=== PATIENT | female | born 1945 | race Caucasian/White ===

== ENCOUNTER → 2016-06-16 | Outpatient (CLI) | payer MEDICARE ==
[~2016-06-16] MED LIST: ACET325T14 PO; AMPI500C2 PO; ASPI325T4 PO; CEPH-376 PO; CIPR500T87 PO; DEXA4TAB PO; FERR325T20 PO; HERBAL SUPPLEMENTS PEG; HYDR-882 PO; IRON PO; IRON1TAB PO; LACT1CAP24 PO; LACT1CAP35 PO; LANS30CA16 PO; LAXATIVE PO; LEVO750T26 PO; LORA-446 PO; MAGN300C PO; MAGN400T7 PO; METO10TA2 PO; METO10TA82 PO; METO25TA35 PO; METO50TA3 PO; ONDA4TAB10 PO; ONDA4TAB13 SL; ONDA4TAB7 PO; OXYC-223 PO; PANT20TA3 PO; POTASSIUM PO; hair skin nails PO
== END | disposition home or self-care (01) ==
LOC: CFH 09:00
PROVIDERS: ATTEND Specialist
DX: C56.9 Malignant neoplasm of unspecified ovary (principal); Z93.2 Ileostomy status
CPT/HCPCS: 74270

== ENCOUNTER 2016-07-26 08:53 | Inpatient (IN) | payer MEDICARE ==
[~2016-07-26] VITALS: Ht 171.4 cm; Wt 64.0 kg
[~2016-07-26 08:53] MED LIST changes: +BUPIVACAINE/PF-EPI 0.25% 1:200K ONE
[2016-07-26] MEDS ORDERED: FENTANYL PF 250 MCG/5ML ONE (09:17)
[2016-07-26] MEDS ORDERED: MULT-230 PO (09:41)
[2016-07-26] MEDS ORDERED: CHOL2000 PO (09:43)
[2016-07-26] MEDS: LACTATED RINGERS 1,000 ML IV SCH (09:58)
[2016-07-26 10:13] LABS: ASPARTATE AMINO TRANSFERASE 23 U/L (15-37); BLOOD UREA NITROGEN 15 mg/dL (7-18)
[2016-07-26] MEDS ORDERED: PHENYLEPHRINE 10 MG/ML ONE (10:32)
[2016-07-26] MEDS ORDERED: DEXAMETHASONE 4 MG/ML, 1ML ONE (10:32)
[2016-07-26] MEDS ORDERED: CEFOTETAN 2 GM ONE (10:32)
[2016-07-26] MEDS ORDERED: KETOROLAC 30 MG/1 ML ONE (10:32)
[2016-07-26] MEDS ORDERED: GLYCOPYRROLATE 0.2MG/1ML ONE (10:32)
[2016-07-26] MEDS ORDERED: ROCURONIUM 10 MG/ML ONE (10:32)
[2016-07-26] MEDS ORDERED: EPHEDRINE 50 MG/ML, 1ML ONE (10:32)
[2016-07-26] MEDS ORDERED: ONDANSETRON 2MG/ML, 2ML ONE ×2 (10:32→16:07)
[2016-07-26] MEDS ORDERED: PROPOFOL 10 MG/ML, 20ML ONE (10:32)
[2016-07-26] MEDS ORDERED: NEOSTIGMINE 1 MG/ML, 10ML ONE (10:32)
[2016-07-26] MEDS ORDERED: MAGNESIUM SULFATE 1 GM/2 ML ONE (11:06)
[2016-07-26] MEDS ORDERED: HYDROcodone/APAP 7.5-325MG/15ML UDC PO PRN (12:00)
[2016-07-26] MEDS ORDERED: EPHEDRINE 50 MG/ML, 1ML IVPush PRN (12:00)
[2016-07-26] MEDS ORDERED: hydrALAzine 20 MG/ML, 1ML IV PRN (12:00)
[2016-07-26] MEDS ORDERED: ONDANSETRON 2MG/ML, 2ML IVPush PRN (12:00)
[2016-07-26] MEDS ORDERED: ACETAMINOPHEN 325 MG TABLET PO PRN (12:00)
[2016-07-26] MEDS ORDERED: LABETALOL 5MG/ML, 20ML IV PRN (12:00)
[2016-07-26] MEDS ORDERED: PROMETHAZINE 25 MG/ML, 1ML IV PRN (12:00)
[2016-07-26] MEDS ORDERED: OMNIPAQUE 350 MG/ML, 50 ML BOTTLE IV ONE (12:01)
[2016-07-26] MEDS ORDERED: OMNIPAQUE 350 MG/ML, 50 ML BOTTLE ONE (12:16)
[2016-07-26] MEDS ORDERED: HYDROmorphone 1 MG/ML, 1ML ONE (12:19)
[2016-07-26] MEDS ORDERED: INDOCYANINE GREEN 25 MG VIAL ONE (12:38)
[2016-07-26] MEDS ORDERED: HYDROmorphone 2 MG/ML, 1ML ONE (15:23)
[2016-07-26] MEDS ORDERED: FENTANYL PF 100 MCG/2ML ONE (15:23)
[2016-07-26] MEDS ORDERED: HYDROmorphone PCA 30 MG/30 ML ONE (15:24)
[2016-07-26] MEDS: FENTANYL PF 100 MCG/2ML IV PRN ×2 (15:27→15:55)
[2016-07-26] MEDS: HYDROmorphone 1 MG/ML, 1ML IV PRN ×4 (15:45→19:52)
[2016-07-26] MEDS ORDERED: HYDROmorphone PCA 30 MG/30 ML IV PRN (16:00)
[2016-07-26] MEDS ORDERED: LACTATED RINGERS 500 ML IVBOLUS ONE (17:30)
[2016-07-26] MEDS ORDERED: LACTATED RINGERS 1,000 ML IVBOLUS ONE (18:30)
[2016-07-26] MEDS ORDERED: FUROSEMIDE 20 MG/2 ML ONE (21:23)
[2016-07-26] MEDS ORDERED: FUROSEMIDE 20 MG/2 ML IV ONE (21:30)
[2016-07-26 21:31] LABS: BLOOD UREA NITROGEN 20 mg/dL (7-18)
[2016-07-26 22:38] VITALS: BP 125/70
[2016-07-26 22:44] VITALS: BP 125/70
[2016-07-27] MEDS: LACTATED RINGERS 1,000 ML IV SCH ×3 (01:18→19:00)
[2016-07-27] MEDS: LABETALOL 5MG/ML, 20ML IVPush SCH ×2 (03:00→18:10)
[2016-07-27] MEDS ORDERED: HYDROmorphone 2 MG/ML, 1ML IV PRN (03:00)
[2016-07-27] MEDS ORDERED: ACETAMINOPHEN 650 MG SUPP PR PRN (03:00)
[2016-07-27] MEDS ORDERED: ACETAMINOPHEN 325 MG TABLET PO PRN (03:00)
[2016-07-27] MEDS: POTASSIUM CHLORIDE 20 MEQ in D5%-LACTATED RINGERS 1,000 ML IV SCH ×2 (03:02→08:03)
[2016-07-27 04:45] LABS: BLOOD UREA NITROGEN 22 mg/dL (7-18)
[2016-07-27 04:49] LABS: ASPARTATE AMINO TRANSFERASE 22 U/L (15-37)
[2016-07-27 06:19] VITALS: BP 114/58
[2016-07-27] MEDS: ONDANSETRON 2MG/ML, 2ML IV PRN (06:37)
[2016-07-27] MEDS: ASPIRIN 325 MG TABLET PO SCH (08:46)
[2016-07-27] MEDS: METOPROLOL TARTRATE 25 MG TABLET PO SCH (08:46)
[2016-07-27] MEDS ORDERED: PROMETHAZINE 25 MG/ML, 1ML ONE (09:00)
[2016-07-27] MEDS ORDERED: LABETALOL 5MG/ML, 20ML ONE (09:00)
[2016-07-27] MEDS ORDERED: PROMETHAZINE 25 MG/ML, 1ML IM PRN (09:00)
[2016-07-27] MEDS: CHOLECALCIFEROL 1,000 UNIT TABLET PO SCH (09:03)
[2016-07-27] MEDS: FERROUS SULFATE 220 MG/5 ML ORAL SOL PO SCH (09:03)
[2016-07-27] MEDS: MAGNESIUM OXIDE 400 MG TABLET PO SCH (09:03)
[2016-07-27] MEDS: MULTIVITAMIN 1 TABLET PO SCH (09:03)
[2016-07-27] MEDS ORDERED: FENTANYL PF 250 MCG/5ML ONE (10:10)
[2016-07-27] MEDS ORDERED: PROPOFOL 10 MG/ML, 20ML ONE (11:23)
[2016-07-27] MEDS ORDERED: SUCCINYLCHOLINE 20 MG/ML, 10ML ONE (11:23)
[2016-07-27] MEDS ORDERED: PHENYLEPHRINE 10 MG/ML ONE (11:23)
[2016-07-27] MEDS ORDERED: METOCLOPRAMIDE 5 MG/ML, 2ML ONE (11:23)
[2016-07-27] MEDS ORDERED: NEOSTIGMINE 1 MG/ML, 10ML ONE (11:23)
[2016-07-27] MEDS ORDERED: ONDANSETRON 2MG/ML, 2ML ONE (11:23)
[2016-07-27] MEDS ORDERED: GLYCOPYRROLATE 0.2MG/1ML ONE (11:23)
[2016-07-27] MEDS ORDERED: ROCURONIUM 10 MG/ML ONE (11:23)
[2016-07-27] MEDS ORDERED: CEFOTETAN 2 GM ONE (11:23)
[2016-07-27] MEDS ORDERED: FLUORESCEIN SODIUM 500 MG/5 ML ONE (12:10)
[2016-07-27] MEDS ORDERED: OMNIPAQUE 350 MG/ML, 50 ML BOTTLE IV ONE (13:25)
[2016-07-27] MEDS ORDERED: FUROSEMIDE 20 MG/2 ML ONE (13:29)
[2016-07-27] MEDS ORDERED: POTASSIUM CHLORIDE IV SCH (14:17)
[2016-07-27] MEDS ORDERED: MVI ADULT IV SCH (14:17)
[2016-07-27] MEDS ORDERED: D5 IV SCH (14:17)
[2016-07-27] MEDS ORDERED: NACL IV SCH (14:17)
[2016-07-27] MEDS ORDERED: OMNIPAQUE 350 MG/ML, 50 ML BOTTLE ONE (14:44)
[2016-07-27 16:55] VITALS: BP 113/58
[2016-07-27] MEDS ORDERED: CEFOTETAN PMX 2GM/50ML 50 ML IV SCH (18:30)
[2016-07-27 19:53] LABS: BLOOD UREA NITROGEN 20 mg/dL (7-18)
[2016-07-27] MEDS: CEFOTETAN PMX 2GM/50ML 50 ML IV SCH (23:27)
[2016-07-28 02:37] VITALS: BP_SYST 114; BP_SYST 133; BP_DIAS 47; BP_DIAS 87
[2016-07-28] MEDS: LABETALOL 5MG/ML, 20ML IVPush SCH ×4 (02:45→19:00)
[2016-07-28 02:54] VITALS: BP 96/51
[2016-07-28 05:33] LABS: BLOOD UREA NITROGEN 18 mg/dL (7-18)
[2016-07-28] MEDS: LACTATED RINGERS 1,000 ML IV SCH ×5 (06:25→23:38)
[2016-07-28] MEDS: MULTIVITAMIN 1 TABLET PO SCH (09:00)
[2016-07-28] MEDS: FERROUS SULFATE 220 MG/5 ML ORAL SOL PO SCH (09:00)
[2016-07-28] MEDS: ASPIRIN 325 MG TABLET PO SCH (09:00)
[2016-07-28] MEDS: MAGNESIUM OXIDE 400 MG TABLET PO SCH (09:00)
[2016-07-28] MEDS: METOPROLOL TARTRATE 25 MG TABLET PO SCH (09:00)
[2016-07-28] MEDS: CHOLECALCIFEROL 1,000 UNIT TABLET PO SCH (09:00)
[2016-07-28 12:33] VITALS: BP 141/47
[2016-07-28] MEDS: CEFOTETAN PMX 2GM/50ML 50 ML IV SCH ×2 (13:53→23:03)
[2016-07-28] MEDS: ONDANSETRON 2MG/ML, 2ML IV PRN (16:23)
[2016-07-28 19:25] VITALS: BP 125/60
[2016-07-28 23:50] VITALS: BP 124/54
[2016-07-29] MEDS ORDERED: LORazepam 2 MG/ML, 1ML IVPush ONE
[2016-07-29] MEDS: LACTATED RINGERS 1,000 ML IV SCH ×6 (01:00→20:18)
[2016-07-29 02:30] VITALS: BP 122/60
[2016-07-29] MEDS: LABETALOL 5MG/ML, 20ML IVPush SCH ×3 (03:26→18:05)
[2016-07-29 04:30] LABS: IS PT STATUS REG ER OR PRE ER? NO
[2016-07-29 06:52] LABS: IS PT STATUS REG ER OR PRE ER? NO
[2016-07-29] MEDS: ASPIRIN 325 MG TABLET PO SCH (08:45)
[2016-07-29] MEDS: MAGNESIUM OXIDE 400 MG TABLET PO SCH (08:46)
[2016-07-29] MEDS: CHOLECALCIFEROL 1,000 UNIT TABLET PO SCH (08:46)
[2016-07-29] MEDS: FERROUS SULFATE 220 MG/5 ML ORAL SOL PO SCH (08:46)
[2016-07-29] MEDS: METOPROLOL TARTRATE 25 MG TABLET PO SCH (08:46)
[2016-07-29] MEDS: MULTIVITAMIN 1 TABLET PO SCH (08:46)
[2016-07-29 09:13] LABS: BLOOD UREA NITROGEN 15 mg/dL (7-18)
[2016-07-29] MEDS: CEFOTETAN PMX 2GM/50ML 50 ML IV SCH ×2 (10:52→22:50)
[2016-07-29] MEDS: LORazepam 2 MG/ML, 1ML IV PRN (10:59)
[2016-07-29] MEDS ORDERED: LACTATED RINGERS 1,000 ML IV SCH (12:00)
[2016-07-29 13:20] LABS: IS PT STATUS REG ER OR PRE ER? NO
[2016-07-29 18:02] VITALS: BP 124/56
[2016-07-29 20:14] VITALS: BP 124/51
[2016-07-30] MEDS: ONDANSETRON 2MG/ML, 2ML IV PRN ×2 (00:31→15:14)
[2016-07-30 02:04] VITALS: BP 128/66
[2016-07-30] MEDS: LABETALOL 5MG/ML, 20ML IVPush SCH ×3 (03:47→20:11)
[2016-07-30] MEDS: LACTATED RINGERS 1,000 ML IV SCH ×3 (03:48→20:13)
[2016-07-30] MEDS: LORazepam 2 MG/ML, 1ML IV PRN (04:00)
[2016-07-30 05:28] LABS: BLOOD UREA NITROGEN 12 mg/dL (7-18)
[2016-07-30 08:00] VITALS: BP 124/57
[2016-07-30] MEDS: FERROUS SULFATE 220 MG/5 ML ORAL SOL PO SCH (09:00)
[2016-07-30] MEDS: CHOLECALCIFEROL 1,000 UNIT TABLET PO SCH (09:00)
[2016-07-30] MEDS: ASPIRIN 325 MG TABLET PO SCH (09:00)
[2016-07-30] MEDS: MAGNESIUM OXIDE 400 MG TABLET PO SCH (09:00)
[2016-07-30] MEDS ORDERED: LACTATED RINGERS 1,000 ML IV SCH (09:00)
[2016-07-30] MEDS: MULTIVITAMIN 1 TABLET PO SCH (09:00)
[2016-07-30] MEDS: METOPROLOL TARTRATE 25 MG TABLET PO SCH (09:00)
[2016-07-30] MEDS: CEFOTETAN PMX 2GM/50ML 50 ML IV SCH ×2 (12:06→22:48)
[2016-07-30 15:37] VITALS: BP 146/78
[2016-07-30] MEDS: ENOXAPARIN 40 MG/0.4 ML SQ SCH (19:30)
[2016-07-30 20:06] VITALS: BP 133/59
[2016-07-30] MEDS: PROCHLORPERAZINE 5 MG/ML, 2ML IVPush PRN (20:11)
[2016-07-30] MEDS ORDERED: DIPHENHYDRAMINE 25 MG CAPSULE ONE (22:26)
[2016-07-31 01:42] VITALS: BP 126/64
[2016-07-31] MEDS: ONDANSETRON 2MG/ML, 2ML IV PRN (02:34)
[2016-07-31] MEDS: LABETALOL 5MG/ML, 20ML IVPush SCH ×3 (04:22→18:03)
[2016-07-31] MEDS: LACTATED RINGERS 1,000 ML IV SCH ×2 (04:23→11:20)
[2016-07-31 07:48] VITALS: BP 146/76
[2016-07-31] MEDS: ASPIRIN 325 MG TABLET PO SCH (07:56)
[2016-07-31] MEDS: FERROUS SULFATE 220 MG/5 ML ORAL SOL PO SCH (07:56)
[2016-07-31] MEDS: METOPROLOL TARTRATE 25 MG TABLET PO SCH (07:57)
[2016-07-31] MEDS: MAGNESIUM OXIDE 400 MG TABLET PO SCH (07:57)
[2016-07-31] MEDS: MULTIVITAMIN 1 TABLET PO SCH (07:57)
[2016-07-31] MEDS: CHOLECALCIFEROL 1,000 UNIT TABLET PO SCH (07:57)
[2016-07-31] MEDS ORDERED: LABETALOL 5MG/ML, 20ML ONE (09:00)
[2016-07-31] MEDS: CEFOTETAN PMX 2GM/50ML 50 ML IV SCH ×2 (11:19→23:07)
[2016-07-31] MEDS: PROCHLORPERAZINE 5 MG/ML, 2ML IVPush PRN (12:13)
[2016-07-31] MEDS ORDERED: PHENOL THROAT SPRAY BOTTLE MM PRN (12:30)
[2016-07-31] MEDS: D5%-0.9% NACL+KCL 20MEQ 1,000 ML IV SCH ×2 (13:37→23:07)
[2016-07-31] MEDS ORDERED: POTASSIUM CHLORIDE 20 MEQ in SODIUM CHLORIDE 0.9% 250 ML IV ONE (14:00)
[2016-07-31 14:37] VITALS: BP 131/69
[2016-07-31 19:30] VITALS: BP 129/63
[2016-07-31] MEDS: ENOXAPARIN 40 MG/0.4 ML SQ SCH (20:19)
[2016-07-31] MEDS: LORazepam 2 MG/ML, 1ML IV PRN (23:07)
[2016-08-01 01:09] VITALS: BP 144/72
[2016-08-01] MEDS: LABETALOL 5MG/ML, 20ML IVPush SCH ×3 (02:29→19:00)
[2016-08-01 03:54] LABS: BLOOD UREA NITROGEN 7 mg/dL (7-18)
[2016-08-01] MEDS ORDERED: POTASSIUM CHLORIDE 20 MEQ in SODIUM CHLORIDE 0.9% 250 ML IV STA (04:12)
[2016-08-01 05:02] VITALS: BP 131/68
[2016-08-01] MEDS: ONDANSETRON 2MG/ML, 2ML IV PRN (05:29)
[2016-08-01 07:24] VITALS: BP 140/72
[2016-08-01] MEDS: PROCHLORPERAZINE 5 MG/ML, 2ML IVPush PRN (08:23)
[2016-08-01] MEDS: ASPIRIN 325 MG TABLET PO SCH (08:25)
[2016-08-01] MEDS: CHOLECALCIFEROL 1,000 UNIT TABLET PO SCH (08:26)
[2016-08-01] MEDS: METOPROLOL TARTRATE 25 MG TABLET PO SCH (08:26)
[2016-08-01] MEDS: FERROUS SULFATE 220 MG/5 ML ORAL SOL PO SCH (08:26)
[2016-08-01] MEDS: MULTIVITAMIN 1 TABLET PO SCH (08:26)
[2016-08-01] MEDS: MAGNESIUM OXIDE 400 MG TABLET PO SCH (08:26)
[2016-08-01 11:26] LABS: ASPARTATE AMINO TRANSFERASE 8 U/L (15-37); BLOOD UREA NITROGEN 5 mg/dL (7-18)
[2016-08-01] MEDS: D5%-0.9% NACL+KCL 20MEQ 1,000 ML IV SCH (12:23)
[2016-08-01] MEDS: CEFOTETAN PMX 2GM/50ML 50 ML IV SCH (12:28)
[2016-08-01] MEDS ORDERED: POTASSIUM CHLORIDE PMX 100 ML IV ONE (12:30)
[2016-08-01 13:33] VITALS: BP 134/72
[2016-08-01] MEDS ORDERED: POTASSIUM CHLORIDE 20 MEQ in SODIUM CHLORIDE 0.9% 250 ML IV ONE (14:00)
[2016-08-01 17:10] LABS: BLOOD UREA NITROGEN 4 mg/dL (7-18)
[2016-08-01] MEDS ORDERED: POTASSIUM CHLORIDE 40 MEQ in SODIUM CHLORIDE 0.9% 500 ML IV ONE (18:00)
[2016-08-01 19:45] VITALS: BP 129/74
[2016-08-01] MEDS: ENOXAPARIN 40 MG/0.4 ML SQ SCH (20:58)
[2016-08-01] MEDS: LORazepam 2 MG/ML, 1ML IV PRN (22:10)
[2016-08-01 22:52] LABS: BLOOD UREA NITROGEN 3 mg/dL (7-18)
[2016-08-02] MEDS ORDERED: MAGNESIUM SULFATE PMX 2GM/50ML 50 ML IV ONE (00:30)
[2016-08-02] MEDS ORDERED: POTASSIUM CHLORIDE 20 MEQ in SODIUM CHLORIDE 0.9% 250 ML IV ONE ×2 (00:30→05:30)
[2016-08-02] MEDS: D5%-0.9% NACL+KCL 20MEQ 1,000 ML IV SCH ×2 (00:53→18:11)
[2016-08-02] MEDS: CEFOTETAN PMX 2GM/50ML 50 ML IV SCH ×2 (00:53→17:41)
[2016-08-02 01:06] VITALS: BP 119/70
[2016-08-02] MEDS: LORazepam 2 MG/ML, 1ML IV PRN (04:00)
[2016-08-02] MEDS: LABETALOL 5MG/ML, 20ML IVPush SCH ×3 (04:00→20:09)
[2016-08-02 04:36] LABS: ASPARTATE AMINO TRANSFERASE 27 U/L (15-37); BLOOD UREA NITROGEN 3 mg/dL (7-18)
[2016-08-02 06:37] VITALS: BP 128/74
[2016-08-02 07:54] LABS: BLOOD UREA NITROGEN 3 mg/dL (7-18)
[2016-08-02] MEDS: ASPIRIN 325 MG TABLET PO SCH (09:00)
[2016-08-02] MEDS: CHOLECALCIFEROL 1,000 UNIT TABLET PO SCH (09:00)
[2016-08-02] MEDS: MAGNESIUM OXIDE 400 MG TABLET PO SCH (09:00)
[2016-08-02] MEDS: METOPROLOL TARTRATE 25 MG TABLET PO SCH (09:00)
[2016-08-02] MEDS: FERROUS SULFATE 220 MG/5 ML ORAL SOL PO SCH (09:00)
[2016-08-02] MEDS: MULTIVITAMIN 1 TABLET PO SCH (09:00)
[2016-08-02] MEDS ORDERED: POTASSIUM CHLORIDE 40 MEQ in SODIUM CHLORIDE 0.9% 500 ML IV ONE ×2 (11:00→20:00)
[2016-08-02 14:23] VITALS: BP 133/73
[2016-08-02 19:11] LABS: BLOOD UREA NITROGEN 4 mg/dL (7-18)
[2016-08-02 19:14] LABS: ASPARTATE AMINO TRANSFERASE 25 U/L (15-37)
[2016-08-02 20:07] VITALS: BP 132/70
[2016-08-02] MEDS: ENOXAPARIN 40 MG/0.4 ML SQ SCH (20:09)
[2016-08-02] MEDS: ONDANSETRON 2MG/ML, 2ML IV PRN (22:00)
[2016-08-03 01:35] LABS: BLOOD UREA NITROGEN 4 mg/dL (7-18)
[2016-08-03] MEDS ORDERED: MAGNESIUM SULFATE PMX 2GM/50ML 50 ML IV ONE (02:30)
[2016-08-03] MEDS ORDERED: POTASSIUM CHLORIDE 20 MEQ in SODIUM CHLORIDE 0.9% 250 ML IV ONE (02:30)
[2016-08-03 02:49] VITALS: BP 136/72
[2016-08-03] MEDS: LABETALOL 5MG/ML, 20ML IVPush SCH ×3 (05:19→20:00)
[2016-08-03] MEDS: CEFOTETAN PMX 2GM/50ML 50 ML IV SCH (05:19)
[2016-08-03 06:27] LABS: BLOOD UREA NITROGEN 3 mg/dL (7-18)
[2016-08-03] MEDS: ASPIRIN 325 MG TABLET PO SCH (08:26)
[2016-08-03 08:29] VITALS: BP 134/69
[2016-08-03 08:52] LABS: ABG COLLECTION SITE RIGHT RADIAL
[2016-08-03 09:42] LABS: COLLATERAL CIRCULATION TESTING NOT DOCUMENTED
[2016-08-03] MEDS: FERROUS SULFATE 220 MG/5 ML ORAL SOL PO SCH (09:57)
[2016-08-03] MEDS: CHOLECALCIFEROL 1,000 UNIT TABLET PO SCH (09:58)
[2016-08-03] MEDS: MULTIVITAMIN 1 TABLET PO SCH (09:58)
[2016-08-03] MEDS: METOPROLOL TARTRATE 25 MG TABLET PO SCH (09:58)
[2016-08-03] MEDS: MAGNESIUM OXIDE 400 MG TABLET PO SCH (09:58)
[2016-08-03] MEDS: PIPERACILLIN/TAZO 3.375 GM in SODIUM CHLORIDE 0.9% 50 ML IV SCH ×3 (10:13→21:34)
[2016-08-03] MEDS: metroNIDAZOLE 500 MG TABLET PO SCH ×4 (10:18→21:34)
[2016-08-03] MEDS: D5%-0.9% NACL+KCL 20MEQ 1,000 ML IV SCH ×2 (10:18→19:36)
[2016-08-03] MEDS: LORazepam 2 MG/ML, 1ML IV PRN (13:03)
[2016-08-03 16:00] VITALS: BP 126/76
[2016-08-03 21:30] VITALS: BP 126/75
[2016-08-03] MEDS: ENOXAPARIN 40 MG/0.4 ML SQ SCH (21:34)
[2016-08-04 03:19] VITALS: BP 131/75
[2016-08-04] MEDS: D5%-0.9% NACL+KCL 20MEQ 1,000 ML IV SCH (03:29)
[2016-08-04] MEDS: LABETALOL 5MG/ML, 20ML IVPush SCH ×3 (03:29→19:30)
[2016-08-04] MEDS: metroNIDAZOLE 500 MG TABLET PO SCH ×3 (03:31→19:19)
[2016-08-04] MEDS: PIPERACILLIN/TAZO 3.375 GM in SODIUM CHLORIDE 0.9% 50 ML IV SCH ×2 (03:31→11:48)
[2016-08-04 06:36] VITALS: BP 136/71
[2016-08-04 07:50] LABS: BLOOD UREA NITROGEN 4 mg/dL (7-18)
[2016-08-04] MEDS: ASPIRIN 325 MG TABLET PO SCH (08:15)
[2016-08-04] MEDS: MULTIVITAMIN 1 TABLET PO SCH (08:16)
[2016-08-04] MEDS: FERROUS SULFATE 220 MG/5 ML ORAL SOL PO SCH (08:16)
[2016-08-04] MEDS: MAGNESIUM OXIDE 400 MG TABLET PO SCH (08:16)
[2016-08-04] MEDS: CHOLECALCIFEROL 1,000 UNIT TABLET PO SCH (08:16)
[2016-08-04] MEDS: METOPROLOL TARTRATE 25 MG TABLET PO SCH (08:18)
[2016-08-04] MEDS: POTASSIUM CHLORIDE 20 MEQ TAB.ER.PRT PO SCH ×2 (11:48→19:19)
[2016-08-04 12:36] VITALS: BP 105/67
[2016-08-04] MEDS ORDERED: D5%-0.9% NACL+KCL 20MEQ 1,000 ML IV SCH (14:00)
[2016-08-04] MEDS: HYDROcodone/APAP 5/325 TABLET PO PRN ×2 (16:51→20:47)
[2016-08-04 18:29] VITALS: BP 115/70
[2016-08-04] MEDS: ENOXAPARIN 40 MG/0.4 ML SQ SCH (20:47)
[2016-08-04] MEDS: LORazepam 1MG TABLET PO PRN (22:13)
[2016-08-04] MEDS: PIPERACILLIN/TAZO/PMX 3.375GM 50 ML IV SCH (22:53)
[2016-08-05] MEDS: metroNIDAZOLE 500 MG TABLET PO SCH ×4 (01:13→19:50)
[2016-08-05 01:29] VITALS: BP 107/67
[2016-08-05] MEDS: LABETALOL 5MG/ML, 20ML IVPush SCH ×3 (03:28→20:00)
[2016-08-05] MEDS: PIPERACILLIN/TAZO/PMX 3.375GM 50 ML IV SCH ×4 (04:47→23:25)
[2016-08-05 06:38] VITALS: BP 117/70
[2016-08-05 07:46] LABS: BLOOD UREA NITROGEN 8 mg/dL (7-18)
[2016-08-05] MEDS: HYDROcodone/APAP 5/325 TABLET PO PRN ×3 (08:52→23:24)
[2016-08-05] MEDS: POTASSIUM CHLORIDE 20 MEQ TAB.ER.PRT PO SCH ×3 (10:25→23:25)
[2016-08-05] MEDS: ASPIRIN 325 MG TABLET PO SCH (10:26)
[2016-08-05] MEDS: METOPROLOL TARTRATE 25 MG TABLET PO SCH (10:26)
[2016-08-05] MEDS: MAGNESIUM OXIDE 400 MG TABLET PO SCH (10:26)
[2016-08-05] MEDS: MULTIVITAMIN 1 TABLET PO SCH (10:26)
[2016-08-05] MEDS: FERROUS SULFATE 220 MG/5 ML ORAL SOL PO SCH (10:26)
[2016-08-05] MEDS: CHOLECALCIFEROL 1,000 UNIT TABLET PO SCH (10:27)
[2016-08-05] MEDS: LORazepam 2 MG/ML, 1ML IV PRN ×2 (11:55→23:24)
[2016-08-05] MEDS: ONDANSETRON 2MG/ML, 2ML IV PRN ×2 (11:58→23:11)
[2016-08-05] MEDS ORDERED: POTASSIUM CHLORIDE 40 MEQ in SODIUM CHLORIDE 0.9% 500 ML IV ONE (12:30)
[2016-08-05] MEDS ORDERED: SODIUM CHLORIDE 0.9% 1,000 ML IV SCH (12:30)
[2016-08-05 13:40] VITALS: BP 111/68
[2016-08-05 19:05] VITALS: BP 102/52
[2016-08-05] MEDS: ENOXAPARIN 40 MG/0.4 ML SQ SCH (23:25)
[2016-08-06 00:22] VITALS: BP 96/63
[2016-08-06] MEDS: metroNIDAZOLE 500 MG TABLET PO SCH ×2 (01:38→09:42)
[2016-08-06 01:39] VITALS: BP 97/63
[2016-08-06] MEDS: LABETALOL 5MG/ML, 20ML IVPush SCH ×3 (04:00→21:00)
[2016-08-06 05:04] LABS: BLOOD UREA NITROGEN 16 mg/dL (7-18)
[2016-08-06] MEDS: PIPERACILLIN/TAZO/PMX 3.375GM 50 ML IV SCH ×4 (05:13→21:48)
[2016-08-06] MEDS: HYDROcodone/APAP 5/325 TABLET PO PRN ×3 (05:46→21:58)
[2016-08-06] MEDS: ONDANSETRON 2MG/ML, 2ML IV PRN ×3 (05:50→21:58)
[2016-08-06 09:02] VITALS: BP 112/72
[2016-08-06] MEDS: POTASSIUM CHLORIDE 20 MEQ TAB.ER.PRT PO SCH ×3 (09:42→21:00)
[2016-08-06] MEDS: ASPIRIN 325 MG TABLET PO SCH (09:42)
[2016-08-06] MEDS: CHOLECALCIFEROL 1,000 UNIT TABLET PO SCH (12:37)
[2016-08-06] MEDS: METOPROLOL TARTRATE 25 MG TABLET PO SCH (12:37)
[2016-08-06] MEDS: MAGNESIUM OXIDE 400 MG TABLET PO SCH (12:37)
[2016-08-06] MEDS: FERROUS SULFATE 220 MG/5 ML ORAL SOL PO SCH (12:38)
[2016-08-06] MEDS: MULTIVITAMIN 1 TABLET PO SCH (12:38)
[2016-08-06] MEDS ORDERED: PHARMACOKINETIC MONITORING MC PRN ×2 (14:30→18:00)
[2016-08-06] MEDS ORDERED: PHARMACOKINETIC CONSULTATION MC ONE (14:30)
[2016-08-06 15:12] VITALS: BP 119/68
[2016-08-06] MEDS ORDERED: PRAMOXINE/ZINC OXIDE 28GM EXT PRN (17:00)
[2016-08-06] MEDS: DIPHENOXYLATE/ATROPINE TABLET PO PRN (17:46)
[2016-08-06] MEDS: VANCOMYCIN 1,300 MG in SODIUM CHLORIDE 0.9% 250 ML IV SCH ×2 (17:47→19:30)
[2016-08-06] MEDS: LORazepam 1MG TABLET PO PRN ×2 (17:47→21:58)
[2016-08-06] MEDS ORDERED: VANCOMYCIN PER PHARMACY MC PRN (18:00)
[2016-08-06 20:36] VITALS: BP 98/56
[2016-08-06 20:58] VITALS: BP 109/60
[2016-08-06] MEDS: PSYLLIUM PACKET PO SCH (21:00)
[2016-08-06] MEDS: ENOXAPARIN 40 MG/0.4 ML SQ SCH (21:52)
[2016-08-07] MEDS: DIPHENOXYLATE/ATROPINE TABLET PO PRN ×3 (03:21→17:22)
[2016-08-07 03:57] VITALS: BP 101/57
[2016-08-07] MEDS: LABETALOL 5MG/ML, 20ML IVPush SCH ×3 (04:00→20:00)
[2016-08-07] MEDS: ONDANSETRON 2MG/ML, 2ML IV PRN ×2 (04:03→20:11)
[2016-08-07] MEDS: PIPERACILLIN/TAZO/PMX 3.375GM 50 ML IV SCH ×4 (04:07→23:50)
[2016-08-07 05:37] LABS: BLOOD UREA NITROGEN 15 mg/dL (7-18)
[2016-08-07 06:55] VITALS: BP 102/65
[2016-08-07] MEDS ORDERED: MAGNESIUM SULFATE PMX 2GM/50ML 50 ML IV ONE (07:30)
[2016-08-07] MEDS: POTASSIUM CHLORIDE 10 MEQ in SODIUM CHLORIDE 0.9% 100 ML IV SCH ×2 (09:00→19:31)
[2016-08-07] MEDS: METOPROLOL TARTRATE 25 MG TABLET PO SCH (09:00)
[2016-08-07] MEDS: PSYLLIUM PACKET PO SCH ×4 (09:00→20:03)
[2016-08-07] MEDS: FERROUS SULFATE 220 MG/5 ML ORAL SOL PO SCH (09:56)
[2016-08-07] MEDS: ASPIRIN 325 MG TABLET PO SCH (09:56)
[2016-08-07] MEDS: POTASSIUM CHLORIDE 20 MEQ TAB.ER.PRT PO SCH ×2 (09:56→20:02)
[2016-08-07] MEDS: MAGNESIUM OXIDE 400 MG TABLET PO SCH (09:59)
[2016-08-07] MEDS: MULTIVITAMIN 1 TABLET PO SCH (09:59)
[2016-08-07] MEDS: CHOLECALCIFEROL 1,000 UNIT TABLET PO SCH (10:00)
[2016-08-07] MEDS: HYDROcodone/APAP 5/325 TABLET PO PRN ×2 (12:37→20:02)
[2016-08-07 12:43] VITALS: BP 119/58
[2016-08-07] MEDS ORDERED: CODEINE SULFATE 30 MG TABLET PO SCH (15:30)
[2016-08-07 18:40] VITALS: BP 119/69
[2016-08-07] MEDS: LORazepam 1MG TABLET PO PRN (20:02)
[2016-08-07] MEDS: ENOXAPARIN 40 MG/0.4 ML SQ SCH (20:03)
[2016-08-07] MEDS: VANCOMYCIN 1,300 MG in SODIUM CHLORIDE 0.9% 250 ML IV SCH (20:34)
[2016-08-08] MEDS: DIPHENOXYLATE/ATROPINE TABLET PO PRN ×3 (01:16→15:15)
[2016-08-08 01:41] VITALS: BP 111/66
[2016-08-08] MEDS: LABETALOL 5MG/ML, 20ML IVPush SCH ×3 (01:43→19:50)
[2016-08-08] MEDS: ONDANSETRON 2MG/ML, 2ML IV PRN (02:11)
[2016-08-08] MEDS: HYDROcodone/APAP 5/325 TABLET PO PRN ×3 (02:11→20:40)
[2016-08-08] MEDS: PIPERACILLIN/TAZO/PMX 3.375GM 50 ML IV SCH ×4 (05:26→22:55)
[2016-08-08 05:34] LABS: BLOOD UREA NITROGEN 9 mg/dL (7-18)
[2016-08-08 07:13] VITALS: BP 107/61
[2016-08-08] MEDS ORDERED: CODEINE SULFATE 30 MG TABLET PO SCH ×2 (08:10→15:30)
[2016-08-08] MEDS: CODEINE SULFATE 30 MG TABLET PO SCH ×2 (08:10→15:26)
[2016-08-08] MEDS: POTASSIUM CHLORIDE 10% 40 MEQ/30 ML UDC PO SCH ×3 (08:41→21:00)
[2016-08-08] MEDS: CHOLECALCIFEROL 1,000 UNIT TABLET PO SCH (08:42)
[2016-08-08] MEDS: MULTIVITAMIN 1 TABLET PO SCH (08:42)
[2016-08-08] MEDS: ASPIRIN 325 MG TABLET PO SCH (08:42)
[2016-08-08] MEDS: FERROUS SULFATE 220 MG/5 ML ORAL SOL PO SCH (08:43)
[2016-08-08] MEDS: METOPROLOL TARTRATE 25 MG TABLET PO SCH (08:43)
[2016-08-08] MEDS: MAGNESIUM OXIDE 400 MG TABLET PO SCH (08:44)
[2016-08-08] MEDS: FAMOTIDINE 20 MG TABLET PO SCH ×2 (08:54→20:06)
[2016-08-08] MEDS: CALCIUM POLYCARBOPHIL 625 MG TABLET PO SCH ×4 (08:54→20:05)
[2016-08-08] MEDS: ONDANSETRON 2MG/ML, 2ML IV SCH ×3 (09:01→20:06)
[2016-08-08] MEDS ORDERED: HYDROCORTISONE CRM 1%, 30GM TP PRN ×2 (11:30)
[2016-08-08 13:20] VITALS: BP 92/64
[2016-08-08] MEDS ORDERED: HYDROcodone/APAP 5/325 TABLET PO PRN (14:00)
[2016-08-08] MEDS ORDERED: PROMETHAZINE 25 MG/ML, 1ML IM PRN (15:00)
[2016-08-08] MEDS ORDERED: VANCOMYCIN PER PHARMACY MC PRN (15:00)
[2016-08-08] MEDS ORDERED: SODIUM CHLORIDE 0.9% 1,000 ML IV SCH (15:00)
[2016-08-08 15:12] VITALS: BP 103/63
[2016-08-08 19:09] VITALS: BP 115/69
[2016-08-08] MEDS: ENOXAPARIN 40 MG/0.4 ML SQ SCH (20:06)
[2016-08-08] MEDS: VANCOMYCIN 1,300 MG in SODIUM CHLORIDE 0.9% 250 ML IV SCH (21:31)
[2016-08-09] MEDS: CODEINE SULFATE 30 MG TABLET PO SCH ×2 (00:23→08:10)
[2016-08-09] MEDS: ONDANSETRON 2MG/ML, 2ML IV SCH ×4 (02:20→21:00)
[2016-08-09 02:25] VITALS: BP 105/64
[2016-08-09] MEDS: LABETALOL 5MG/ML, 20ML IVPush SCH ×3 (04:00→20:00)
[2016-08-09 04:49] LABS: DIFF TOTAL CELLS COUNTED 100 CELL DIFF
[2016-08-09 04:52] LABS: ANISOCYTOSIS 1+; VERIFY COUNTS? YES
[2016-08-09 04:53] LABS: POLYCHROMASIA 1+
[2016-08-09 04:54] LABS: ECHINOCYTES 1+
[2016-08-09 06:11] LABS: BLOOD UREA NITROGEN 10 mg/dL (7-18)
[2016-08-09] MEDS: PIPERACILLIN/TAZO/PMX 3.375GM 50 ML IV SCH ×3 (07:30→19:30)
[2016-08-09] MEDS: POTASSIUM CHLORIDE 10% 40 MEQ/30 ML UDC PO SCH ×2 (09:00→21:00)
[2016-08-09] MEDS: FAMOTIDINE 20 MG TABLET PO SCH ×2 (09:00→21:00)
[2016-08-09] MEDS: METOPROLOL TARTRATE 25 MG TABLET PO SCH (09:00)
[2016-08-09] MEDS: MAGNESIUM OXIDE 400 MG TABLET PO SCH (09:00)
[2016-08-09] MEDS: MULTIVITAMIN 1 TABLET PO SCH (09:00)
[2016-08-09] MEDS: FERROUS SULFATE 220 MG/5 ML ORAL SOL PO SCH (09:10)
[2016-08-09] MEDS: CHOLECALCIFEROL 1,000 UNIT TABLET PO SCH (09:10)
[2016-08-09] MEDS: ASPIRIN 325 MG TABLET PO SCH (09:10)
[2016-08-09] MEDS: ENOXAPARIN 40 MG/0.4 ML SQ SCH (20:00)
[2016-08-09] MEDS: VANCOMYCIN 1,300 MG in SODIUM CHLORIDE 0.9% 250 ML IV SCH (21:00)
[2016-08-10] MEDS: PIPERACILLIN/TAZO/PMX 3.375GM 50 ML IV SCH ×4 (01:30→20:35)
[2016-08-10] MEDS: ONDANSETRON 2MG/ML, 2ML IV SCH ×4 (03:00→20:38)
[2016-08-10] MEDS: LABETALOL 5MG/ML, 20ML IVPush SCH ×3 (04:00→20:39)
[2016-08-10 06:35] VITALS: BP 144/81
[2016-08-10] MEDS: ASPIRIN 325 MG TABLET PO SCH (09:00)
[2016-08-10] MEDS: METOPROLOL TARTRATE 25 MG TABLET PO SCH (09:00)
[2016-08-10] MEDS: CHOLECALCIFEROL 1,000 UNIT TABLET PO SCH (09:00)
[2016-08-10] MEDS: FERROUS SULFATE 220 MG/5 ML ORAL SOL PO SCH (09:00)
[2016-08-10] MEDS: POTASSIUM CHLORIDE 10% 40 MEQ/30 ML UDC PO SCH (09:00)
[2016-08-10] MEDS: FAMOTIDINE 20 MG TABLET PO SCH ×2 (09:00→21:56)
[2016-08-10] MEDS: MULTIVITAMIN 1 TABLET PO SCH (09:00)
[2016-08-10] MEDS: MAGNESIUM OXIDE 400 MG TABLET PO SCH (09:00)
[2016-08-10] MEDS: CODEINE SULFATE 30 MG TABLET PO SCH ×3 (09:10→21:59)
[2016-08-10] MEDS ORDERED: POTASSIUM CHLORIDE 10 MEQ in SODIUM CHLORIDE 0.9% 500 ML IV SCH (09:30)
[2016-08-10 14:42] VITALS: BP 130/81
[2016-08-10] MEDS ORDERED: DIPHENOXYLATE/ATROPINE TABLET ONE (16:20)
[2016-08-10 19:56] VITALS: BP 138/88
[2016-08-10] MEDS: ENOXAPARIN 40 MG/0.4 ML SQ SCH (20:38)
[2016-08-10] MEDS: HYDROcodone/APAP 5/325 TABLET PO PRN (20:49)
[2016-08-10] MEDS: VANCOMYCIN 1,300 MG in SODIUM CHLORIDE 0.9% 250 ML IV SCH (21:55)
[2016-08-10] MEDS: CALCIUM POLYCARBOPHIL 625 MG TABLET PO SCH (21:56)
[2016-08-11] MEDS: POTASSIUM CHLORIDE 10% 40 MEQ/30 ML UDC PO SCH ×3 (00:28→20:33)
[2016-08-11] MEDS: PIPERACILLIN/TAZO/PMX 3.375GM 50 ML IV SCH ×3 (01:58→18:23)
[2016-08-11] MEDS: ONDANSETRON 2MG/ML, 2ML IV SCH ×3 (01:58→18:23)
[2016-08-11 02:35] VITALS: BP 126/74
[2016-08-11] MEDS: LABETALOL 5MG/ML, 20ML IVPush SCH ×3 (04:35→20:00)
[2016-08-11 05:12] LABS: BLOOD UREA NITROGEN 9 mg/dL (7-18)
[2016-08-11 07:55] VITALS: BP 127/73
[2016-08-11] MEDS: MULTIVITAMIN 1 TABLET PO SCH (09:00)
[2016-08-11] MEDS: DIPHENOXYLATE/ATROPINE TABLET PO SCH ×2 (11:02→18:24)
[2016-08-11] MEDS: CHOLECALCIFEROL 1,000 UNIT TABLET PO SCH (11:02)
[2016-08-11] MEDS: FAMOTIDINE 20 MG TABLET PO SCH ×2 (11:02→20:33)
[2016-08-11] MEDS: CALCIUM POLYCARBOPHIL 625 MG TABLET PO SCH ×2 (11:03→20:34)
[2016-08-11] MEDS: METOPROLOL TARTRATE 25 MG TABLET PO SCH (11:03)
[2016-08-11] MEDS: ASPIRIN 325 MG TABLET PO SCH (11:03)
[2016-08-11] MEDS: FERROUS SULFATE 220 MG/5 ML ORAL SOL PO SCH (11:04)
[2016-08-11] MEDS: LORazepam 2 MG/ML, 1ML IV PRN (11:33)
[2016-08-11 14:05] VITALS: BP 119/73
[2016-08-11] MEDS: CODEINE SULFATE 30 MG TABLET PO SCH (18:23)
[2016-08-11 19:57] VITALS: BP 100/61
[2016-08-11] MEDS: ENOXAPARIN 40 MG/0.4 ML SQ SCH (20:34)
[2016-08-11] MEDS: VANCOMYCIN 1,300 MG in SODIUM CHLORIDE 0.9% 250 ML IV SCH (20:34)
[2016-08-11 20:49] LABS: BLOOD UREA NITROGEN 10 mg/dL (7-18)
[2016-08-11] MEDS ORDERED: DIPHENOXYLATE/ATROPINE TABLET PO SCH ×2 (21:00)
[2016-08-11] MEDS: HYDROcodone/APAP 5/325 TABLET PO PRN (22:59)
[2016-08-12] MEDS: CODEINE SULFATE 30 MG TABLET PO SCH ×4 (00:15→21:48)
[2016-08-12] MEDS: ONDANSETRON 2MG/ML, 2ML IV SCH ×4 (00:15→18:39)
[2016-08-12] MEDS: PIPERACILLIN/TAZO/PMX 3.375GM 50 ML IV SCH ×4 (00:15→18:39)
[2016-08-12] MEDS: DIPHENOXYLATE/ATROPINE TABLET PO SCH ×4 (00:15→21:48)
[2016-08-12 03:34] VITALS: BP 106/67
[2016-08-12] MEDS: LABETALOL 5MG/ML, 20ML IVPush SCH ×3 (03:57→21:00)
[2016-08-12 07:27] VITALS: BP 103/69
[2016-08-12] MEDS: ASPIRIN 325 MG TABLET PO SCH (09:57)
[2016-08-12] MEDS: POTASSIUM CHLORIDE 10% 40 MEQ/30 ML UDC PO SCH ×2 (09:58→21:48)
[2016-08-12] MEDS: CALCIUM POLYCARBOPHIL 625 MG TABLET PO SCH ×2 (09:58→21:49)
[2016-08-12] MEDS: FAMOTIDINE 20 MG TABLET PO SCH ×2 (09:59→21:48)
[2016-08-12] MEDS: CHOLECALCIFEROL 1,000 UNIT TABLET PO SCH (09:59)
[2016-08-12] MEDS: MULTIVITAMIN 1 TABLET PO SCH (09:59)
[2016-08-12] MEDS: FERROUS SULFATE 220 MG/5 ML ORAL SOL PO SCH (10:01)
[2016-08-12] MEDS: METOPROLOL TARTRATE 25 MG TABLET PO SCH (10:02)
[2016-08-12] MEDS: LORazepam 2 MG/ML, 1ML IV PRN (10:03)
[2016-08-12 17:07] VITALS: BP 101/63
[2016-08-12 19:02] VITALS: BP 124/57
[2016-08-12] MEDS: VANCOMYCIN 1,300 MG in SODIUM CHLORIDE 0.9% 250 ML IV SCH (20:30)
[2016-08-12] MEDS: ENOXAPARIN 40 MG/0.4 ML SQ SCH (21:47)
[2016-08-13] MEDS: PIPERACILLIN/TAZO/PMX 3.375GM 50 ML IV SCH ×4 (00:47→17:22)
[2016-08-13] MEDS: ONDANSETRON 2MG/ML, 2ML IV SCH ×4 (00:47→17:22)
[2016-08-13 01:52] VITALS: BP 117/65
[2016-08-13 04:47] LABS: BLOOD UREA NITROGEN 7 mg/dL (7-18)
[2016-08-13] MEDS ORDERED: VANCOMYCIN 1,300 MG in SODIUM CHLORIDE 0.9% 250 ML IV SCH (05:00)
[2016-08-13] MEDS: LABETALOL 5MG/ML, 20ML IVPush SCH ×3 (05:04→21:00)
[2016-08-13 07:05] VITALS: BP 120/64
[2016-08-13] MEDS: MULTIVITAMIN 1 TABLET PO SCH (08:04)
[2016-08-13] MEDS: METOPROLOL TARTRATE 25 MG TABLET PO SCH (08:04)
[2016-08-13] MEDS: FAMOTIDINE 20 MG TABLET PO SCH ×2 (08:04→22:37)
[2016-08-13] MEDS: FERROUS SULFATE 220 MG/5 ML ORAL SOL PO SCH (08:04)
[2016-08-13] MEDS: POTASSIUM CHLORIDE 10% 40 MEQ/30 ML UDC PO SCH ×2 (08:04→22:37)
[2016-08-13] MEDS: DIPHENOXYLATE/ATROPINE TABLET PO SCH ×3 (08:04→22:37)
[2016-08-13] MEDS: ASPIRIN 325 MG TABLET PO SCH (08:04)
[2016-08-13] MEDS: CHOLECALCIFEROL 1,000 UNIT TABLET PO SCH (08:05)
[2016-08-13] MEDS: CALCIUM POLYCARBOPHIL 625 MG TABLET PO SCH ×2 (08:06→21:00)
[2016-08-13] MEDS: CODEINE SULFATE 30 MG TABLET PO SCH ×3 (08:19→22:35)
[2016-08-13] MEDS: LORazepam 2 MG/ML, 1ML IV PRN ×2 (10:14→17:22)
[2016-08-13 15:30] VITALS: BP 99/57
[2016-08-13 19:08] VITALS: BP 120/73
[2016-08-13] MEDS: COLESTIPOL GRANULES 5 GM PACKET PO SCH (21:00)
[2016-08-13] MEDS: COLESTIPOL 1 GM TABLET PO SCH ×2 (21:00→22:35)
[2016-08-13] MEDS: ENOXAPARIN 40 MG/0.4 ML SQ SCH (22:37)
[2016-08-14] MEDS: ONDANSETRON 2MG/ML, 2ML IV SCH ×4 (00:53→18:14)
[2016-08-14] MEDS: LABETALOL 5MG/ML, 20ML IVPush SCH ×3 (00:53→21:00)
[2016-08-14] MEDS: PIPERACILLIN/TAZO/PMX 3.375GM 50 ML IV SCH ×4 (00:53→21:49)
[2016-08-14 01:36] VITALS: BP 118/73
[2016-08-14 04:44] LABS: BLOOD UREA NITROGEN 11 mg/dL (7-18)
[2016-08-14] MEDS: CODEINE SULFATE 30 MG TABLET PO SCH ×3 (08:12→21:52)
[2016-08-14] MEDS: FAMOTIDINE 20 MG TABLET PO SCH ×2 (08:13→21:49)
[2016-08-14] MEDS: CHOLECALCIFEROL 1,000 UNIT TABLET PO SCH (08:14)
[2016-08-14] MEDS: COLESTIPOL GRANULES 5 GM PACKET PO SCH ×2 (08:15→21:00)
[2016-08-14] MEDS: ASPIRIN 325 MG TABLET PO SCH (08:15)
[2016-08-14] MEDS: MULTIVITAMIN 1 TABLET PO SCH (08:17)
[2016-08-14] MEDS: DIPHENOXYLATE/ATROPINE TABLET PO SCH ×3 (08:18→21:49)
[2016-08-14] MEDS: CALCIUM POLYCARBOPHIL 625 MG TABLET PO SCH ×2 (08:19→21:00)
[2016-08-14] MEDS: POTASSIUM CHLORIDE 10% 40 MEQ/30 ML UDC PO SCH ×2 (08:20→21:50)
[2016-08-14] MEDS: FERROUS SULFATE 220 MG/5 ML ORAL SOL PO SCH (08:21)
[2016-08-14] MEDS: METOPROLOL TARTRATE 25 MG TABLET PO SCH (08:21)
[2016-08-14 08:44] VITALS: BP 113/69
[2016-08-14 12:39] VITALS: BP 104/63
[2016-08-14] MEDS: VANCOMYCIN 1,300 MG in SODIUM CHLORIDE 0.9% 250 ML IV SCH (17:47)
[2016-08-14 19:02] VITALS: BP 103/69
[2016-08-14] MEDS: ENOXAPARIN 40 MG/0.4 ML SQ SCH (21:50)
[2016-08-15] MEDS: ONDANSETRON 2MG/ML, 2ML IV SCH ×4 (00:15→17:49)
[2016-08-15] MEDS: LABETALOL 5MG/ML, 20ML IVPush SCH ×3 (00:15→20:11)
[2016-08-15] MEDS: LORazepam 2 MG/ML, 1ML IV PRN ×2 (00:58→12:40)
[2016-08-15 03:30] VITALS: BP 101/64
[2016-08-15] MEDS: PIPERACILLIN/TAZO/PMX 3.375GM 50 ML IV SCH ×4 (03:42→22:13)
[2016-08-15 06:50] VITALS: BP 96/60
[2016-08-15] MEDS: CHOLECALCIFEROL 1,000 UNIT TABLET PO SCH (09:37)
[2016-08-15] MEDS: MULTIVITAMIN 1 TABLET PO SCH (09:37)
[2016-08-15] MEDS: POTASSIUM CHLORIDE 10% 40 MEQ/30 ML UDC PO SCH ×2 (09:37→22:13)
[2016-08-15] MEDS: ASPIRIN 325 MG TABLET PO SCH (09:37)
[2016-08-15] MEDS: CODEINE SULFATE 30 MG TABLET PO SCH ×3 (09:38→22:14)
[2016-08-15] MEDS: METOPROLOL TARTRATE 25 MG TABLET PO SCH (09:38)
[2016-08-15] MEDS: COLESTIPOL GRANULES 5 GM PACKET PO SCH ×2 (09:38→21:00)
[2016-08-15] MEDS: CALCIUM POLYCARBOPHIL 625 MG TABLET PO SCH ×3 (09:38→22:13)
[2016-08-15] MEDS: FERROUS SULFATE 220 MG/5 ML ORAL SOL PO SCH (09:38)
[2016-08-15] MEDS: DIPHENOXYLATE/ATROPINE TABLET PO SCH ×3 (09:38→22:13)
[2016-08-15] MEDS: OPIUM TINCTURE PO SCH ×3 (12:19→22:14)
[2016-08-15 15:30] VITALS: BP 108/67
[2016-08-15] MEDS ORDERED: OPIUM TINCTURE PO SCH (16:00)
[2016-08-15 19:28] VITALS: BP 94/59
[2016-08-15] MEDS: FAMOTIDINE 20 MG TABLET PO SCH (22:13)
[2016-08-15] MEDS: ENOXAPARIN 40 MG/0.4 ML SQ SCH (22:15)
[2016-08-15] MEDS: NS + 20MEQ KCL 1,000 ML IV SCH (23:31)
[2016-08-16] MEDS: ONDANSETRON 2MG/ML, 2ML IV SCH ×3 (00:08→15:54)
[2016-08-16 01:15] VITALS: BP 103/64
[2016-08-16] MEDS: LABETALOL 5MG/ML, 20ML IVPush SCH ×3 (04:01→21:00)
[2016-08-16] MEDS: PIPERACILLIN/TAZO/PMX 3.375GM 50 ML IV SCH ×2 (04:05→09:31)
[2016-08-16] MEDS: VANCOMYCIN 1,300 MG in SODIUM CHLORIDE 0.9% 250 ML IV SCH (05:09)
[2016-08-16] MEDS: CODEINE SULFATE 30 MG TABLET PO SCH ×3 (09:29→21:17)
[2016-08-16] MEDS: MULTIVITAMIN 1 TABLET PO SCH (09:30)
[2016-08-16] MEDS: ASPIRIN 325 MG TABLET PO SCH (09:30)
[2016-08-16] MEDS: COLESTIPOL GRANULES 5 GM PACKET PO SCH ×2 (09:30→21:00)
[2016-08-16] MEDS: POTASSIUM CHLORIDE 10% 40 MEQ/30 ML UDC PO SCH ×2 (09:31→21:16)
[2016-08-16] MEDS: CHOLECALCIFEROL 1,000 UNIT TABLET PO SCH (09:31)
[2016-08-16] MEDS: METOPROLOL TARTRATE 25 MG TABLET PO SCH (09:31)
[2016-08-16] MEDS: OPIUM TINCTURE PO SCH ×3 (09:31→21:16)
[2016-08-16] MEDS: FERROUS SULFATE 220 MG/5 ML ORAL SOL PO SCH (09:32)
[2016-08-16] MEDS: DIPHENOXYLATE/ATROPINE TABLET PO SCH ×3 (09:32→21:16)
[2016-08-16] MEDS: CALCIUM POLYCARBOPHIL 625 MG TABLET PO SCH (09:35)
[2016-08-16 09:46] VITALS: BP 116/73
[2016-08-16] MEDS ORDERED: VANCOMYCIN PER PHARMACY MC PRN (12:00)
[2016-08-16 14:44] VITALS: BP 117/65
[2016-08-16] MEDS ORDERED: CYSTO CONRAY II 250 ML VIAL UR ONE (15:34)
[2016-08-16] MEDS: NS + 20MEQ KCL 1,000 ML IV SCH ×2 (15:54→17:00)
[2016-08-16] MEDS: LACTOBACILLUS 1GM/ PACKET PO SCH ×3 (16:00→21:16)
[2016-08-16] MEDS ORDERED: PIPERACILLIN/TAZO/PMX 3.375GM 50 ML IV SCH (16:00)
[2016-08-16 19:02] VITALS: BP 100/64
[2016-08-16] MEDS: FAMOTIDINE 20 MG TABLET PO SCH (21:15)
[2016-08-16] MEDS: ENOXAPARIN 40 MG/0.4 ML SQ SCH (21:16)
[2016-08-17] MEDS: ONDANSETRON 2MG/ML, 2ML IV SCH ×6 (00:30→19:49)
[2016-08-17 02:32] VITALS: BP 107/55
[2016-08-17] MEDS: NS + 20MEQ KCL 1,000 ML IV SCH ×3 (03:00→19:48)
[2016-08-17] MEDS: LABETALOL 5MG/ML, 20ML IVPush SCH ×4 (05:00→19:48)
[2016-08-17] MEDS: LACTOBACILLUS 1GM/ PACKET PO SCH ×4 (06:03→21:26)
[2016-08-17 06:52] VITALS: BP 109/65
[2016-08-17] MEDS: FERROUS SULFATE 220 MG/5 ML ORAL SOL PO SCH (08:34)
[2016-08-17] MEDS: OPIUM TINCTURE PO SCH ×3 (08:34→17:55)
[2016-08-17] MEDS: POTASSIUM CHLORIDE 10% 40 MEQ/30 ML UDC PO SCH ×2 (08:34→21:26)
[2016-08-17] MEDS: MULTIVITAMIN 1 TABLET PO SCH (08:35)
[2016-08-17] MEDS: ASPIRIN 325 MG TABLET PO SCH (08:35)
[2016-08-17] MEDS: METOPROLOL TARTRATE 25 MG TABLET PO SCH (08:35)
[2016-08-17] MEDS: DIPHENOXYLATE/ATROPINE TABLET PO SCH ×3 (08:35→21:26)
[2016-08-17] MEDS: CHOLECALCIFEROL 1,000 UNIT TABLET PO SCH (08:35)
[2016-08-17] MEDS: COLESTIPOL GRANULES 5 GM PACKET PO SCH ×2 (08:35→21:00)
[2016-08-17] MEDS: CODEINE SULFATE 30 MG TABLET PO SCH ×3 (08:35→17:55)
[2016-08-17 12:35] VITALS: BP 96/58
[2016-08-17 19:30] VITALS: BP 109/67
[2016-08-17] MEDS: ENOXAPARIN 40 MG/0.4 ML SQ SCH (21:26)
[2016-08-17] MEDS: FAMOTIDINE 20 MG TABLET PO SCH (21:26)
[2016-08-18 02:02] VITALS: BP 109/69
[2016-08-18] MEDS: HYDROcodone/APAP 5/325 TABLET PO PRN (05:38)
[2016-08-18] MEDS: LACTOBACILLUS 1GM/ PACKET PO SCH ×4 (05:38→21:40)
[2016-08-18 07:14] VITALS: BP 114/73
[2016-08-18] MEDS: COLESTIPOL GRANULES 5 GM PACKET PO SCH ×2 (09:00→21:00)
[2016-08-18] MEDS: ASPIRIN 325 MG TABLET PO SCH (09:12)
[2016-08-18] MEDS: FERROUS SULFATE 220 MG/5 ML ORAL SOL PO SCH (09:13)
[2016-08-18] MEDS: DIPHENOXYLATE/ATROPINE TABLET PO SCH ×3 (09:13→21:40)
[2016-08-18] MEDS: POTASSIUM CHLORIDE 10% 40 MEQ/30 ML UDC PO SCH ×2 (09:14→21:40)
[2016-08-18] MEDS: MULTIVITAMIN 1 TABLET PO SCH (09:14)
[2016-08-18] MEDS: METOPROLOL TARTRATE 25 MG TABLET PO SCH (09:14)
[2016-08-18] MEDS: CHOLECALCIFEROL 1,000 UNIT TABLET PO SCH (09:14)
[2016-08-18] MEDS: OPIUM TINCTURE PO SCH ×3 (09:31→21:40)
[2016-08-18] MEDS: CODEINE SULFATE 30 MG TABLET PO SCH ×3 (09:31→21:40)
[2016-08-18] MEDS: ONDANSETRON 2MG/ML, 2ML IV SCH ×4 (12:30→21:42)
[2016-08-18] MEDS: LABETALOL 5MG/ML, 20ML IVPush SCH ×3 (13:00→21:41)
[2016-08-18 13:37] VITALS: BP 106/66
[2016-08-18 19:49] VITALS: BP 103/68
[2016-08-18] MEDS: ENOXAPARIN 40 MG/0.4 ML SQ SCH (21:40)
[2016-08-18] MEDS: NS + 20MEQ KCL 1,000 ML IV SCH (21:41)
[2016-08-18] MEDS: FAMOTIDINE 20 MG TABLET PO SCH (21:51)
[2016-08-19 01:43] VITALS: BP 112/61
[2016-08-19] MEDS: HYDROcodone/APAP 5/325 TABLET PO PRN (02:06)
[2016-08-19] MEDS: LACTOBACILLUS 1GM/ PACKET PO SCH ×4 (06:26→21:55)
[2016-08-19 06:58] VITALS: BP 107/69
[2016-08-19] MEDS: NS + 20MEQ KCL 1,000 ML IV SCH ×3 (08:00→19:28)
[2016-08-19] MEDS: COLESTIPOL GRANULES 5 GM PACKET PO SCH ×2 (09:00→21:00)
[2016-08-19] MEDS: FERROUS SULFATE 220 MG/5 ML ORAL SOL PO SCH (09:02)
[2016-08-19] MEDS: METOPROLOL TARTRATE 25 MG TABLET PO SCH (09:02)
[2016-08-19] MEDS: POTASSIUM CHLORIDE 10% 40 MEQ/30 ML UDC PO SCH ×2 (09:02→21:55)
[2016-08-19] MEDS: DIPHENOXYLATE/ATROPINE TABLET PO SCH ×3 (09:03→21:55)
[2016-08-19] MEDS: MULTIVITAMIN 1 TABLET PO SCH (09:03)
[2016-08-19] MEDS: ASPIRIN 325 MG TABLET PO SCH (09:03)
[2016-08-19] MEDS: CHOLECALCIFEROL 1,000 UNIT TABLET PO SCH (09:03)
[2016-08-19] MEDS: OPIUM TINCTURE PO SCH ×3 (09:16→21:00)
[2016-08-19] MEDS: CODEINE SULFATE 30 MG TABLET PO SCH ×2 (09:31→21:00)
[2016-08-19] MEDS: ONDANSETRON 2MG/ML, 2ML IV SCH ×3 (12:30→19:28)
[2016-08-19] MEDS: LABETALOL 5MG/ML, 20ML IVPush SCH ×3 (13:00→19:28)
[2016-08-19 13:01] VITALS: BP 97/59
[2016-08-19] MEDS: LORazepam 1MG TABLET PO PRN (15:22)
[2016-08-19 18:49] VITALS: BP 128/72
[2016-08-19] MEDS: FAMOTIDINE 20 MG TABLET PO SCH (21:55)
[2016-08-19] MEDS: ENOXAPARIN 40 MG/0.4 ML SQ SCH (21:55)
[2016-08-20 02:47] VITALS: BP 107/58
[2016-08-20 05:01] LABS: BLOOD UREA NITROGEN 15 mg/dL (7-18)
[2016-08-20] MEDS: LACTOBACILLUS 1GM/ PACKET PO SCH ×4 (06:15→21:25)
[2016-08-20] MEDS: CODEINE SULFATE 30 MG TABLET PO SCH ×2 (06:38→21:25)
[2016-08-20 08:43] VITALS: BP 119/75
[2016-08-20] MEDS: COLESTIPOL GRANULES 5 GM PACKET PO SCH ×2 (09:00→21:25)
[2016-08-20] MEDS: ASPIRIN 325 MG TABLET PO SCH (09:12)
[2016-08-20] MEDS: MULTIVITAMIN 1 TABLET PO SCH (09:12)
[2016-08-20] MEDS: FERROUS SULFATE 220 MG/5 ML ORAL SOL PO SCH (09:13)
[2016-08-20] MEDS: METOPROLOL TARTRATE 25 MG TABLET PO SCH (09:13)
[2016-08-20] MEDS: DIPHENOXYLATE/ATROPINE TABLET PO SCH ×3 (09:13→21:25)
[2016-08-20] MEDS: CHOLECALCIFEROL 1,000 UNIT TABLET PO SCH (09:13)
[2016-08-20] MEDS: POTASSIUM CHLORIDE 10% 40 MEQ/30 ML UDC PO SCH ×2 (09:13→21:26)
[2016-08-20] MEDS: OPIUM TINCTURE PO SCH ×3 (09:48→21:25)
[2016-08-20] MEDS: ONDANSETRON 2MG/ML, 2ML IV SCH ×3 (12:30→23:24)
[2016-08-20 13:11] VITALS: BP 115/72
[2016-08-20 18:35] VITALS: BP 123/70
[2016-08-20] MEDS: FAMOTIDINE 20 MG TABLET PO SCH (21:26)
[2016-08-20] MEDS: ENOXAPARIN 40 MG/0.4 ML SQ SCH (21:26)
[2016-08-21 01:52] VITALS: BP 146/72
[2016-08-21] MEDS: HYDROcodone/APAP 5/325 TABLET PO PRN (04:30)
[2016-08-21 05:30] LABS: BLOOD UREA NITROGEN 12 mg/dL (7-18)
[2016-08-21] MEDS: LACTOBACILLUS 1GM/ PACKET PO SCH ×4 (05:55→20:06)
[2016-08-21] MEDS: ONDANSETRON 2MG/ML, 2ML IV SCH ×4 (05:55→22:46)
[2016-08-21 07:57] VITALS: BP 137/76
[2016-08-21] MEDS: METOPROLOL TARTRATE 25 MG TABLET PO SCH (08:24)
[2016-08-21] MEDS: OPIUM TINCTURE PO SCH ×3 (08:24→20:06)
[2016-08-21] MEDS: POTASSIUM CHLORIDE 10% 40 MEQ/30 ML UDC PO SCH ×2 (08:24→20:05)
[2016-08-21] MEDS: CHOLECALCIFEROL 1,000 UNIT TABLET PO SCH (08:25)
[2016-08-21] MEDS: MULTIVITAMIN 1 TABLET PO SCH (08:25)
[2016-08-21] MEDS: ASPIRIN 325 MG TABLET PO SCH (08:25)
[2016-08-21] MEDS: DIPHENOXYLATE/ATROPINE TABLET PO SCH ×3 (08:25→20:06)
[2016-08-21] MEDS: COLESTIPOL GRANULES 5 GM PACKET PO SCH ×2 (08:26→20:06)
[2016-08-21] MEDS: FERROUS SULFATE 220 MG/5 ML ORAL SOL PO SCH (08:26)
[2016-08-21] MEDS: CODEINE SULFATE 30 MG TABLET PO SCH ×2 (08:27→20:06)
[2016-08-21 13:55] VITALS: BP 119/71
[2016-08-21 19:05] VITALS: BP 120/75
[2016-08-21] MEDS: ONDANSETRON ODT 4 MG PO PRN (19:33)
[2016-08-21] MEDS: ENOXAPARIN 40 MG/0.4 ML SQ SCH (20:06)
[2016-08-21] MEDS: FAMOTIDINE 20 MG TABLET PO SCH (20:06)
[2016-08-22 02:02] VITALS: BP 132/76
[2016-08-22] MEDS: LORazepam 1MG TABLET PO PRN (03:02)
[2016-08-22] MEDS: LACTOBACILLUS 1GM/ PACKET PO SCH ×4 (06:00→20:37)
[2016-08-22] MEDS: ONDANSETRON 2MG/ML, 2ML IV SCH ×3 (06:07→18:30)
[2016-08-22 06:48] VITALS: BP 124/75
[2016-08-22] MEDS: POTASSIUM CHLORIDE 10% 40 MEQ/30 ML UDC PO SCH ×2 (08:33→20:37)
[2016-08-22] MEDS: FERROUS SULFATE 220 MG/5 ML ORAL SOL PO SCH (08:34)
[2016-08-22] MEDS: COLESTIPOL GRANULES 5 GM PACKET PO SCH ×2 (08:34→20:38)
[2016-08-22] MEDS: CODEINE SULFATE 30 MG TABLET PO SCH ×2 (08:34→20:43)
[2016-08-22] MEDS: DIPHENOXYLATE/ATROPINE TABLET PO SCH ×3 (08:35→20:38)
[2016-08-22] MEDS: MULTIVITAMIN 1 TABLET PO SCH (08:36)
[2016-08-22] MEDS: CHOLECALCIFEROL 1,000 UNIT TABLET PO SCH (08:36)
[2016-08-22] MEDS: METOPROLOL TARTRATE 25 MG TABLET PO SCH (08:36)
[2016-08-22] MEDS: ASPIRIN 325 MG TABLET PO SCH (08:36)
[2016-08-22] MEDS: OPIUM TINCTURE PO SCH ×3 (09:45→20:43)
[2016-08-22 18:17] VITALS: BP 119/50
[2016-08-22] MEDS: ENOXAPARIN 40 MG/0.4 ML SQ SCH (20:36)
[2016-08-22] MEDS: FAMOTIDINE 20 MG TABLET PO SCH (20:36)
[2016-08-23] MEDS: LORazepam 1MG TABLET PO PRN (01:30)
[2016-08-23 01:33] VITALS: BP 127/77
[2016-08-23 05:05] LABS: BLOOD UREA NITROGEN 7 mg/dL (7-18)
[2016-08-23] MEDS: LACTOBACILLUS 1GM/ PACKET PO SCH ×4 (06:02→20:45)
[2016-08-23 07:35] VITALS: BP 128/73
[2016-08-23] MEDS: COLESTIPOL GRANULES 5 GM PACKET PO SCH ×2 (09:00→20:45)
[2016-08-23] MEDS: ASPIRIN 325 MG TABLET PO SCH (09:40)
[2016-08-23] MEDS: MULTIVITAMIN 1 TABLET PO SCH (09:41)
[2016-08-23] MEDS: FAMOTIDINE 20 MG TABLET PO SCH ×2 (09:41→20:45)
[2016-08-23] MEDS: METOPROLOL TARTRATE 25 MG TABLET PO SCH (09:42)
[2016-08-23] MEDS: CHOLECALCIFEROL 1,000 UNIT TABLET PO SCH (09:42)
[2016-08-23] MEDS: FERROUS SULFATE 220 MG/5 ML ORAL SOL PO SCH (09:43)
[2016-08-23] MEDS: POTASSIUM CHLORIDE 10% 40 MEQ/30 ML UDC PO SCH (09:44)
[2016-08-23] MEDS: DIPHENOXYLATE/ATROPINE TABLET PO SCH ×3 (09:51→20:45)
[2016-08-23] MEDS: OPIUM TINCTURE PO SCH ×3 (09:51→20:46)
[2016-08-23] MEDS: CODEINE SULFATE 30 MG TABLET PO SCH ×2 (09:55→20:45)
[2016-08-23 16:18] VITALS: BP 115/70
[2016-08-23 19:29] VITALS: BP 136/75
[2016-08-24] MEDS: LACTOBACILLUS 1GM/ PACKET PO SCH ×4 (06:05→23:41)
[2016-08-24] MEDS: ONDANSETRON ODT 4 MG PO PRN ×2 (06:07→11:18)
[2016-08-24] MEDS: OPIUM TINCTURE PO SCH ×3 (07:45→23:41)
[2016-08-24] MEDS: DIPHENOXYLATE/ATROPINE TABLET PO SCH ×3 (07:45→23:42)
[2016-08-24] MEDS: ASPIRIN 325 MG TABLET PO SCH (07:45)
[2016-08-24] MEDS: FERROUS SULFATE 220 MG/5 ML ORAL SOL PO SCH (07:45)
[2016-08-24] MEDS: MULTIVITAMIN 1 TABLET PO SCH (07:45)
[2016-08-24] MEDS: CODEINE SULFATE 30 MG TABLET PO SCH ×2 (07:46→23:41)
[2016-08-24] MEDS: FAMOTIDINE 20 MG TABLET PO SCH ×2 (07:46→23:41)
[2016-08-24] MEDS: METOPROLOL TARTRATE 25 MG TABLET PO SCH (07:47)
[2016-08-24] MEDS: CHOLECALCIFEROL 1,000 UNIT TABLET PO SCH (07:47)
[2016-08-24] MEDS: COLESTIPOL GRANULES 5 GM PACKET PO SCH ×2 (07:48→21:00)
[2016-08-24 07:59] VITALS: BP 126/76
[2016-08-24 13:00] VITALS: BP 118/71
[2016-08-24 19:40] VITALS: BP 126/71
[2016-08-25] MEDS: LACTOBACILLUS 1GM/ PACKET PO SCH ×4 (06:07→21:39)
[2016-08-25 06:44] VITALS: BP 109/69
[2016-08-25] MEDS: COLESTIPOL GRANULES 5 GM PACKET PO SCH ×2 (09:00→21:00)
[2016-08-25] MEDS: ASPIRIN 325 MG TABLET PO SCH (09:25)
[2016-08-25] MEDS: MULTIVITAMIN 1 TABLET PO SCH (09:26)
[2016-08-25] MEDS: CHOLECALCIFEROL 1,000 UNIT TABLET PO SCH (09:26)
[2016-08-25] MEDS: CODEINE SULFATE 30 MG TABLET PO SCH ×2 (09:26→21:40)
[2016-08-25] MEDS: DIPHENOXYLATE/ATROPINE TABLET PO SCH ×3 (09:26→21:39)
[2016-08-25] MEDS: FAMOTIDINE 20 MG TABLET PO SCH ×2 (09:26→21:40)
[2016-08-25] MEDS: FERROUS SULFATE 220 MG/5 ML ORAL SOL PO SCH (09:26)
[2016-08-25] MEDS: METOPROLOL TARTRATE 25 MG TABLET PO SCH (09:27)
[2016-08-25] MEDS: OPIUM TINCTURE PO SCH ×3 (09:27→21:39)
[2016-08-25 13:34] VITALS: BP 116/67
[2016-08-25 19:57] VITALS: BP 121/72
[2016-08-26 01:36] VITALS: BP 112/62
[2016-08-26] MEDS: ONDANSETRON ODT 4 MG PO PRN ×2 (03:12→13:12)
[2016-08-26] MEDS: LORazepam 1MG TABLET PO PRN (03:17)
[2016-08-26] MEDS: LACTOBACILLUS 1GM/ PACKET PO SCH ×4 (06:30→23:58)
[2016-08-26 08:53] VITALS: BP 101/64
[2016-08-26] MEDS: METOPROLOL TARTRATE 25 MG TABLET PO SCH (09:00)
[2016-08-26] MEDS: ASPIRIN 325 MG TABLET PO SCH (09:00)
[2016-08-26 13:04] VITALS: BP 115/72
[2016-08-26 13:52] VITALS: BP 114/71
[2016-08-26] MEDS: DIPHENOXYLATE/ATROPINE TABLET PO SCH ×2 (16:00→18:06)
[2016-08-26] MEDS: OPIUM TINCTURE PO SCH ×2 (16:00→18:05)
[2016-08-26] MEDS: COLESTIPOL GRANULES 5 GM PACKET PO SCH ×2 (18:05→21:00)
[2016-08-26] MEDS: FERROUS SULFATE 220 MG/5 ML ORAL SOL PO SCH (18:05)
[2016-08-26] MEDS: CODEINE SULFATE 30 MG TABLET PO SCH (18:05)
[2016-08-26] MEDS: FAMOTIDINE 20 MG TABLET PO SCH ×2 (18:06→19:45)
[2016-08-26] MEDS: MULTIVITAMIN 1 TABLET PO SCH (18:06)
[2016-08-26] MEDS: CHOLECALCIFEROL 1,000 UNIT TABLET PO SCH (18:07)
[2016-08-26 18:32] VITALS: BP 112/70
[2016-08-26] MEDS ORDERED: LORazepam 1MG TABLET PO PRN (20:00)
[2016-08-27 01:34] VITALS: BP 106/65
[2016-08-27] MEDS: OPIUM TINCTURE PO SCH ×2 (02:16→09:48)
[2016-08-27] MEDS: DIPHENOXYLATE/ATROPINE TABLET PO SCH ×2 (02:16→09:49)
[2016-08-27] MEDS: CODEINE SULFATE 30 MG TABLET PO SCH ×2 (06:19→07:13)
[2016-08-27] MEDS: LACTOBACILLUS 1GM/ PACKET PO SCH ×2 (06:19→09:50)
[2016-08-27 07:13] VITALS: BP 114/68
[2016-08-27] MEDS: FERROUS SULFATE 220 MG/5 ML ORAL SOL PO SCH (09:48)
[2016-08-27] MEDS: ASPIRIN 325 MG TABLET PO SCH (09:48)
[2016-08-27] MEDS: FAMOTIDINE 20 MG TABLET PO SCH (09:49)
[2016-08-27] MEDS: MULTIVITAMIN 1 TABLET PO SCH (09:49)
[2016-08-27] MEDS: CHOLECALCIFEROL 1,000 UNIT TABLET PO SCH (09:49)
[2016-08-27] MEDS: METOPROLOL TARTRATE 25 MG TABLET PO SCH (09:50)
[2016-08-27] MEDS: COLESTIPOL GRANULES 5 GM PACKET PO SCH (09:51)
[2016-08-27 12:51] VITALS: BP 116/62
[2016-08-27] MEDS ORDERED: COLE1TAB PO (13:57)
[2016-08-27] MEDS ORDERED: DIPH1TAB PO (13:58)
[2016-08-27] MEDS ORDERED: OPIU10TI2 PO (13:59)
[2016-08-27] MEDS ORDERED: ACID1GRA2 PO (14:00)
[2016-08-27] MEDS ORDERED: CODE30TA3 PO (14:00)
[2016-08-27] MEDS ORDERED: HYDR-882 PO (14:01)
== END 2016-08-27 15:33 | disposition home health service (06) | DRG 329 ==
LOC: ORIP 08:53 → CCU 21:40 → 3NW 07-27 16:32 → 5SO 08-01 05:16 → 3NW 08-06 20:51
PROVIDERS: ADMIT Specialist; ATTEND Specialist
PROC: 0TN60ZZ Release Right Ureter, Open Approach (ICD-10-PCS; 2016-07-26)
PROC: 0TP98DZ Removal of Intraluminal Device from Ureter, Via Natural or Artificial Opening Endoscopic (ICD-10-PCS; 2016-07-26)
PROC: 0T768DZ Dilation of Right Ureter with Intraluminal Device, Via Natural or Artificial Opening Endoscopic (ICD-10-PCS; 2016-07-26)
PROC: 0FN00ZZ Release Liver, Open Approach (ICD-10-PCS; 2016-07-26)
PROC: 0DN80ZZ Release Small Intestine, Open Approach (ICD-10-PCS; 2016-07-26)
PROC: 0DBB0ZZ Excision of Ileum, Open Approach (ICD-10-PCS; 2016-07-26)
PROC: 0T1 Urinary System, Bypass (ICD-10-PCS; 2016-07-26)
PROC: 0DBB0ZZ Excision of Ileum, Open Approach (ICD-10-PCS; 2016-07-26)
PROC: BT1D1ZZ Fluoroscopy of Right Kidney, Ureter and Bladder using Low Osmolar Contrast (ICD-10-PCS; principal; 2016-07-26 10:30)
PROC: 0DB80ZZ Excision of Small Intestine, Open Approach (ICD-10-PCS; 2016-07-26 10:30)
PROC: 0TQ60ZZ Repair Right Ureter, Open Approach (ICD-10-PCS; 2016-07-27)
PROC: 0W9G0ZZ Drainage of Peritoneal Cavity, Open Approach (ICD-10-PCS; 2016-07-27)
PROC: BT1D1ZZ Fluoroscopy of Right Kidney, Ureter and Bladder using Low Osmolar Contrast (ICD-10-PCS; 2016-07-27)
PROC: 3E0M05Z Introduction of Adhesion Barrier into Peritoneal Cavity, Open Approach (ICD-10-PCS; 2016-07-27)
PROC: 0TP98DZ Removal of Intraluminal Device from Ureter, Via Natural or Artificial Opening Endoscopic (ICD-10-PCS; 2016-07-27)
PROC: 0T768DZ Dilation of Right Ureter with Intraluminal Device, Via Natural or Artificial Opening Endoscopic (ICD-10-PCS; 2016-07-27)
PROC: 0T9B70Z Drainage of Bladder with Drainage Device, Via Natural or Artificial Opening (ICD-10-PCS; 2016-08-16)
DX: N82.4 Other female intestinal-genital tract fistulae (principal); E43 Unspecified severe protein-calorie malnutrition; C56.9 Malignant neoplasm of unspecified ovary; E46 Unspecified protein-calorie malnutrition; E87.4 Mixed disorder of acid-base balance; K50.90 Crohn's disease, unspecified, without complications; K56.7 Ileus, unspecified; K91.2 Postsurgical malabsorption, not elsewhere classified; N17.9 Acute kidney failure, unspecified; D72.829 Elevated white blood cell count, unspecified; N13.5 Crossing vessel and stricture of ureter without hydronephrosis; E87.6 Hypokalemia; I48.91 Unspecified atrial fibrillation; K57.90 Diverticulosis of intestine, part unspecified, without perforation or abscess without bleeding; D64.9 Anemia, unspecified; B96.20 Unspecified Escherichia coli [E. coli] as the cause of diseases classified elsewhere; K66.0 Peritoneal adhesions (postprocedural) (postinfection); N73.6 Female pelvic peritoneal adhesions (postinfective); Z68.21 Body mass index [BMI] 21.0-21.9, adult; Z88.1 Allergy status to other antibiotic agents; Z43.2 Encounter for attention to ileostomy; Z43.3 Encounter for attention to colostomy; Z90.710 Acquired absence of both cervix and uterus; Z90.722 Acquired absence of ovaries, bilateral
CPT/HCPCS: 36415; 36600; 74000; 74420; 74430; 76770; 80048; 80053; 80202; 81001; 82040; 82330; 82378; 82436; 82570; 82803; 82947; 83615; 83735; 83935; 84132; 84133; 84156; 84295; 84300; 84484; 85014; 85025; 85610; 85730; 86304; 86850; 86900; 86923; 87070; 87075; 87077; 87081; 87186; 87205; 87324; 88304; 88305; 88307; 88331; 93005; C1729; J1100; J1170; J1650; J1885; J2270; J2405; J2543; J2550; J2704; J2710; J3010; J3370; J3475; J3480; J3490; J7120; Q0162; Q9958; Q9967; C1758; C1765; C1769; C2617; J0330; J0780; J1940; J2060; J2370; J2765; J7040; J7050; J7121; S0074

== ENCOUNTER 2016-10-22 06:01 | Day surgery (SDC) | payer MEDICARE ==
[~2016-10-22] VITALS: Ht 171.4 cm; Wt 53.5 kg
[~2016-10-22 06:01] MED LIST changes: +ACID1GRA2 PO; -BUPIVACAINE/PF-EPI 0.25% 1:200K ONE; +CEFD300C37 PO; +CHOL2000 PO; +CODE30TA3 PO; +COLE1TAB PO; +DIPH1TAB PO; +LOPE2CAP PO; +MULT-230 PO; +OPIU10TI2 PO
[2016-10-22 06:31] VITALS: BP 91/60
[2016-10-22] MEDS ORDERED: LACTATED RINGERS 1,000 ML IV SCH (06:31)
[2016-10-22] MEDS ORDERED: LOPE2CAP94 PO (06:51)
[2016-10-22] MEDS ORDERED: PROPOFOL 10 MG/ML, 20ML ONE (08:06)
[2016-10-22] MEDS ORDERED: ONDANSETRON 2MG/ML, 2ML ONE (08:06)
[2016-10-22] MEDS ORDERED: FENTANYL PF 100 MCG/2ML IV PRN (08:30)
[2016-10-22] MEDS ORDERED: hydrALAzine 20 MG/ML, 1ML IV PRN (08:30)
[2016-10-22] MEDS ORDERED: ONDANSETRON 2MG/ML, 2ML IVPush PRN (08:30)
[2016-10-22] MEDS ORDERED: HYDROmorphone 1 MG/ML, 1ML IV PRN (08:30)
[2016-10-22] MEDS ORDERED: OXYcodone 5 MG/5 ML ORAL.SOL UDC PO PRN (08:30)
[2016-10-22] MEDS ORDERED: LABETALOL 5MG/ML, 20ML IV PRN (08:30)
== END 2016-10-22 16:15 | disposition home or self-care (01) ==
LOC: OUT 06:01
PROVIDERS: ATTEND Specialist
DX: Z46.6 Encounter for fitting and adjustment of urinary device (principal); Z85.43 Personal history of malignant neoplasm of ovary; Z88.5 Allergy status to narcotic agent
CPT/HCPCS: 52310; 74000; 76000; 87070; 87075; 87077; 87086; 87106; 87186; 87205; C1769; J2405; J2704; J7120

== ENCOUNTER → 2016-11-15 | Outpatient (CLI) | payer MEDICARE ==
[~2016-11-15] MED LIST changes: -ACID1GRA2 PO; +ACID1GRA3 PO; +ASPI325T17 PO; -ASPI325T4 PO; +FERR325T18 PO; -FERR325T20 PO; -LANS30CA16 PO; +LANS30CA60 PO; +LOPE2CAP94 PO; -OXYC-223 PO; +OXYC-306 PO
== END | disposition home or self-care (01) ==
LOC: WOUND 09:00
PROVIDERS: ATTEND Physician Assistant
DX: L89.152 Pressure ulcer of sacral region, stage 2 (principal); K21.9 Gastro-esophageal reflux disease without esophagitis; G47.30 Sleep apnea, unspecified; F41.9 Anxiety disorder, unspecified; Z90.710 Acquired absence of both cervix and uterus; Z92.21 Personal history of antineoplastic chemotherapy; Z85.43 Personal history of malignant neoplasm of ovary
CPT/HCPCS: G0463; WOU0463

== ENCOUNTER → 2016-11-22 | Outpatient (CLI) | payer MEDICARE | END | disposition home or self-care (01) | LOC: WOUND 10:44 | PROVIDERS: ATTEND Physician Assistant | DX: L89.152 Pressure ulcer of sacral region, stage 2 (principal); K59.1 Functional diarrhea; K21.9 Gastro-esophageal reflux disease without esophagitis; G47.30 Sleep apnea, unspecified; Z90.710 Acquired absence of both cervix and uterus; Z92.21 Personal history of antineoplastic chemotherapy | CPT/HCPCS: G0463; WOU0463 ==

== ENCOUNTER → 2016-11-29 | Outpatient (CLI) | payer MEDICARE | END | disposition home or self-care (01) | LOC: WOUND 11:03 | PROVIDERS: ATTEND Physician Assistant | DX: L89.152 Pressure ulcer of sacral region, stage 2 (principal); K59.1 Functional diarrhea; K21.9 Gastro-esophageal reflux disease without esophagitis; F41.9 Anxiety disorder, unspecified; B96.1 Klebsiella pneumoniae [K. pneumoniae] as the cause of diseases classified elsewhere; Z85.43 Personal history of malignant neoplasm of ovary; Z92.21 Personal history of antineoplastic chemotherapy; Z90.49 Acquired absence of other specified parts of digestive tract; Z90.710 Acquired absence of both cervix and uterus; Z98.42 Cataract extraction status, left eye; Z98.41 Cataract extraction status, right eye | CPT/HCPCS: G0463; WOU0463 ==

== ENCOUNTER → 2017-07-25 | Outpatient (CLI) | payer MEDICARE ==
[~2017-07-25] MED LIST changes: -METO50TA3 PO; +METO50TA6 PO
== END | disposition home or self-care (01) ==
LOC: WOUND 08:50
PROVIDERS: ATTEND Internal Medicine
DX: L89.43 Pressure ulcer of contiguous site of back, buttock and hip, stage 3 (principal); I42.9 Cardiomyopathy, unspecified; I47.1 Supraventricular tachycardia; I48.91 Unspecified atrial fibrillation; I48.92 Unspecified atrial flutter; G47.30 Sleep apnea, unspecified; K91.1 Postgastric surgery syndromes; K21.9 Gastro-esophageal reflux disease without esophagitis; Z98.49 Cataract extraction status, unspecified eye; Z85.43 Personal history of malignant neoplasm of ovary; Z92.21 Personal history of antineoplastic chemotherapy; Z90.710 Acquired absence of both cervix and uterus
CPT/HCPCS: 97597; G0463; WOU0463

== ENCOUNTER → 2017-08-15 | Outpatient (CLI) | payer MEDICARE | END | disposition home or self-care (01) | LOC: WOUND 13:00 | PROVIDERS: ATTEND Internal Medicine | DX: L89.43 Pressure ulcer of contiguous site of back, buttock and hip, stage 3 (principal); C56.2 Malignant neoplasm of left ovary; C78.80 Secondary malignant neoplasm of unspecified digestive organ; C56.1 Malignant neoplasm of right ovary; K91.1 Postgastric surgery syndromes; I42.9 Cardiomyopathy, unspecified; I47.1 Supraventricular tachycardia; I48.91 Unspecified atrial fibrillation; I48.92 Unspecified atrial flutter | CPT/HCPCS: 97597 ==

== ENCOUNTER → 2017-08-22 | Outpatient (CLI) | payer MEDICARE ==
[~2017-08-22] MED LIST changes: +DEXA4TAB66 PO
== END | disposition home or self-care (01) ==
LOC: WOUND 11:07
PROVIDERS: ATTEND Internal Medicine Cardiovascular Disease
DX: L89.42 Pressure ulcer of contiguous site of back, buttock and hip, stage 2 (principal); S31.829D Unspecified open wound of left buttock, subsequent encounter; K91.1 Postgastric surgery syndromes; I42.9 Cardiomyopathy, unspecified; I47.1 Supraventricular tachycardia; I48.91 Unspecified atrial fibrillation; I48.92 Unspecified atrial flutter; K21.9 Gastro-esophageal reflux disease without esophagitis; G47.30 Sleep apnea, unspecified; Z90.710 Acquired absence of both cervix and uterus; Z85.43 Personal history of malignant neoplasm of ovary; X58.XXXD Exposure to other specified factors, subsequent encounter
CPT/HCPCS: G0463; WOU0463

== ENCOUNTER 2017-08-28 12:15 | Inpatient (IN) | payer MEDICARE ==
[~2017-08-28] VITALS: Ht 170.2 cm; Wt 63.3 kg
[~2017-08-28 12:15] MED LIST changes: -DEXA4TAB66 PO
[2017-08-28 12:33] VITALS: BP 122/60
[2017-08-28] MEDS ORDERED: ONDA4TAB10 PO (12:50)
[2017-08-28] MEDS ORDERED: DEXA4TAB66 PO (12:50)
[2017-08-28 13:24] LABS: ALANINE AMINOTRANSFERASE 23 U/L (12-78); ALBUMIN 2.6 g/dL (3.4-5.0); ANION GAP 8 mmol/L (5-15); CALCIUM 8.5 mg/dL (8.5-10.1); CHLORIDE 109 mmol/L (98-107); CREATININE 0.96 mg/dL (0.55-1.02)
[2017-08-28 13:26] LABS: ALKALINE PHOSPHATASE 133 U/L (45-117); TOTAL PROTEIN 5.8 g/dL (6.4-8.2)
[2017-08-28 13:29] LABS: MD YES; MEAN CORPUSCULAR HEMOGLOBIN 29.9 pg (27.0-34.8); MEAN CORPUSCULAR HGB CONC 32.3 g/dL (32.4-35.8); MEAN CORPUSCULAR VOLUME 92.8 fL (80-100); MEAN PLATELET VOLUME 6.6 fL (7.4-10.4); PLATELET COUNT 685 x10^3/uL (130-400); RED BLOOD COUNT 2.55 x10^6/uL (3.82-5.3); RED CELL DISTRIBUTION WIDTH 28.2 % (9.6-15.2)
[2017-08-28] MEDS ORDERED: LOPERAMIDE 2 MG CAPSULE PO PRN (13:30)
[2017-08-28 13:31] LABS: METAMYELOCYTES# (MANUAL) 0.11 x10^3/uL (0-0); METAMYELOCYTES% (MANUAL) 1 % (0-1); MONOS#(MANUAL) 0.68 x10^3/uL (0.3-2.7); MONOS% (MANUAL) 6 % (2-9); NRBC % (MANUAL) 1 % (0-1)
[2017-08-28 13:32] LABS: <PLATELET ESTIMATE> INCREASED; <PLT MORPHOLOGY> NORMAL PLT MORPH; ANISOCYTOSIS 2+; BAND#(MANUAL) 0.23 x10^3/uL; BANDS%(MANUAL) 2 % (0-7); LYMPHS% (MANUAL) 8 % (22-44); SEG#(MANUAL) 9.38 x10^3/uL (1.8-6.8); SEGS% (MANUAL) 83 % (42-75)
[2017-08-28 13:33] LABS: MICROCYTOSIS 1+; POLYCHROMASIA 1+
[2017-08-28 13:35] LABS: HYPOCHROMIA 1+
[2017-08-28] MEDS ORDERED: DIPHENHYDRAMINE 25 MG CAPSULE PO ONE (14:00)
[2017-08-28] MEDS ORDERED: ACETAMINOPHEN 325 MG TABLET PO ONE (14:00)
[2017-08-28] MEDS ORDERED: MAGNESIUM SULFATE 4 GM in STERILE WATER 42 ML IV ONE (14:30)
[2017-08-28] MEDS: D5%-0.45NACL+KCL 20MEQ 1,000 ML IV SCH (15:07)
[2017-08-28] MEDS: ONDANSETRON ODT 4 MG PO PRN (16:10)
[2017-08-28] MEDS: LACTOBACILLUS 1GM/ PACKET PO SCH ×2 (16:10→21:00)
[2017-08-28] MEDS: OPIUM TINCTURE 1% 10 MG/ML ORAL.SOL PO SCH ×2 (16:10→21:50)
[2017-08-28] MEDS: FERROUS SULFATE 325 MG TABLET PO SCH (17:54)
[2017-08-28 19:10] VITALS: BP 119/58
[2017-08-28] MEDS ORDERED: ACETAMINOPHEN 325 MG TABLET ONE (19:59)
[2017-08-28] MEDS ORDERED: DIPHENHYDRAMINE 25 MG CAPSULE ONE (20:00)
[2017-08-28 21:12] LABS: CLOSTRIDIUM DIFFICILE ANTIGEN POSITIVE; CLOSTRIDIUM DIFFICILE TOXIN NEGATIVE (Negative)
[2017-08-28 21:43] VITALS: BP 112/48
[2017-08-28] MEDS: DIPHENOXYLATE/ATROPINE TABLET PO PRN (21:51)
[2017-08-28] MEDS: LORazepam 0.5MG TABLET PO SCH (21:51)
[2017-08-28 21:58] VITALS: BP 120/45
[2017-08-29] VITALS (7 sets, daily range): BP systolic 106–128; BP diastolic 57–73
[2017-08-29] MEDS ORDERED: ASPIRIN 325 MG TABLET PO SCH (06:00)
[2017-08-29] MEDS: LACTOBACILLUS 1GM/ PACKET PO SCH ×4 (06:00→19:44)
[2017-08-29] MEDS: D5%-0.45NACL+KCL 20MEQ 1,000 ML IV SCH ×2 (06:36→07:48)
[2017-08-29] MEDS: FERROUS SULFATE 325 MG TABLET PO SCH ×2 (08:03→17:39)
[2017-08-29] MEDS: OPIUM TINCTURE 1% 10 MG/ML ORAL.SOL PO SCH ×3 (08:05→19:44)
[2017-08-29] MEDS: ONDANSETRON ODT 4 MG PO PRN (08:12)
[2017-08-29 08:16] LABS: MEAN CORPUSCULAR HEMOGLOBIN 30.9 pg (27.0-34.8); MEAN CORPUSCULAR HGB CONC 33.3 g/dL (32.4-35.8); MEAN CORPUSCULAR VOLUME 92.7 fL (80-100); MEAN PLATELET VOLUME 6.3 fL (7.4-10.4); PLATELET COUNT 583 x10^3/uL (130-400); RED BLOOD COUNT 3.74 x10^6/uL (3.82-5.3); RED CELL DISTRIBUTION WIDTH 21.3 % (9.6-15.2)
[2017-08-29 08:23] LABS: ALBUMIN 2.2 g/dL (3.4-5.0); ANION GAP 8 mmol/L (5-15); CALCIUM 8.1 mg/dL (8.5-10.1); CHLORIDE 110 mmol/L (98-107); CREATININE 0.69 mg/dL (0.55-1.02)
[2017-08-29 08:30] LABS: MD YES
[2017-08-29 08:35] LABS: BAND#(MANUAL) 0.19 x10^3/uL; BANDS%(MANUAL) 2 % (0-7); EOS#(MANUAL) 0.09 x10^3/uL (0.0-0.4); EOS% (MANUAL) 1 % (1-7); LYMPH#(MANUAL) 0.74 x10^3/uL (1-3.4); LYMPHS% (MANUAL) 8 % (22-44); METAMYELOCYTES# (MANUAL) 0.28 x10^3/uL (0-0); METAMYELOCYTES% (MANUAL) 3 % (0-1); MONOS#(MANUAL) 1.02 x10^3/uL (0.3-2.7); MONOS% (MANUAL) 11 % (2-9); MYELOCYTES# (MANUAL) 0.09 x10^3/uL (0-0); MYELOCYTES% (MANUAL) 1 % (0-0); NRBC % (MANUAL) 1 % (0-1); SEG#(MANUAL) 6.88 x10^3/uL (1.8-6.8); SEGS% (MANUAL) 74 % (42-75)
[2017-08-29 08:36] LABS: <PLATELET ESTIMATE> INCREASED; <PLT MORPHOLOGY> NORMAL PLT MORPH; ANISOCYTOSIS 2+; HYPOCHROMIA 1+; POLYCHROMASIA 1+
[2017-08-29] MEDS ORDERED: CHOLECALCIFEROL 1,000 UNIT TABLET PO SCH (09:00)
[2017-08-29] MEDS: DIPHENOXYLATE/ATROPINE TABLET PO PRN (10:51)
[2017-08-29] MEDS ORDERED: POTASSIUM CHLORIDE 20 MEQ in SODIUM CHLORIDE 0.9% 250 ML IV ONE (12:00)
[2017-08-29] MEDS ORDERED: INDIGO CARMINE 0.8%, 5ML ONE (18:40)
[2017-08-29] MEDS ORDERED: HEPARIN 1,000 UNITS/ML, 10ML ONE (18:40)
[2017-08-29] MEDS ORDERED: BUPIVACAINE/PF 0.25% ONE (18:40)
[2017-08-29] MEDS ORDERED: EPINEPHRINE 1 MG/ML, 1ML ONE (18:40)
[2017-08-29] MEDS ORDERED: METHYLENE BLUE 10 MG/ML 10ML ONE (18:40)
[2017-08-29] MEDS ORDERED: HEPARIN 5,000 UNITS/ML, 1ML ONE (18:40)
[2017-08-29] MEDS: LORazepam 0.5MG TABLET PO SCH (19:44)
[2017-08-29] MEDS ORDERED: GLYCOPYRROLATE 0.2MG/1ML, 5ML ONE (20:04)
[2017-08-29] MEDS ORDERED: NEOSTIGMINE 1 MG/ML, 10ML ONE (20:04)
[2017-08-29] MEDS ORDERED: PHENYLEPHRINE 10 MG/ML ONE (20:04)
[2017-08-29] MEDS ORDERED: DEXAMETHASONE 4 MG/ML, 1ML ONE (20:04)
[2017-08-29] MEDS ORDERED: FENTANYL PF 250 MCG/5ML ONE (20:37)
[2017-08-29] MEDS ORDERED: CEFOTETAN PMX 1GM/50ML 50 ML ONE (20:48)
[2017-08-29] MEDS ORDERED: PROPOFOL 10 MG/ML, 20ML ONE (20:48)
[2017-08-29] MEDS ORDERED: CEFAZOLIN 1,000 MG ONE (20:48)
[2017-08-29] MEDS ORDERED: ROCURONIUM 10MG/ML,5ML ONE (20:48)
[2017-08-29] MEDS ORDERED: HALOPERIDOL 5 MG/ML IV PRN (21:00)
[2017-08-29] MEDS ORDERED: EPHEDRINE 50 MG/ML, 1ML IVPush PRN (21:00)
[2017-08-29] MEDS ORDERED: hydrALAzine 20 MG/ML, 1ML IV PRN (21:00)
[2017-08-29] MEDS ORDERED: MORPHINE SULFATE 4 MG/ML, 1ML IVPush PRN (21:00)
[2017-08-29] MEDS ORDERED: PROMETHAZINE 25 MG/ML, 1ML IV PRN (21:00)
[2017-08-29] MEDS ORDERED: ALBUTEROL SULFATE 2.5 MG/3 ML NPPB PRN (21:00)
[2017-08-29] MEDS ORDERED: OXYcodone 5 MG/5 ML ORAL.SOL UDC PO PRN (21:00)
[2017-08-29] MEDS ORDERED: LABETALOL 5MG/ML, 20ML IV PRN (21:00)
[2017-08-29] MEDS ORDERED: FENTANYL PF 100 MCG/2ML IV PRN (21:00)
[2017-08-29] MEDS ORDERED: METOPROLOL 1 MG/ML, 5ML IV PRN (21:00)
[2017-08-29] MEDS ORDERED: BUPIVACAINE/PF 0.5% ONE (22:00)
[2017-08-29] MEDS ORDERED: ONDANSETRON 2MG/ML, 2ML ONE (22:02)
[2017-08-30] MEDS ORDERED: ALBUMIN HUMAN 5% 500 ML IV STA (00:28)
[2017-08-30] MEDS ORDERED: LACTATED RINGERS 1,000 ML IVBOLUS ONE (00:30)
[2017-08-30] MEDS: LACTATED RINGERS 1,000 ML IV SCH ×3 (02:34→17:33)
[2017-08-30 04:32] LABS: MEAN CORPUSCULAR HEMOGLOBIN 31.5 pg (27.0-34.8); MEAN CORPUSCULAR HGB CONC 33.3 g/dL (32.4-35.8); MEAN CORPUSCULAR VOLUME 94.6 fL (80-100); MEAN PLATELET VOLUME 6.1 fL (7.4-10.4); PLATELET COUNT 483 x10^3/uL (130-400); RED BLOOD COUNT 3.06 x10^6/uL (3.82-5.3); RED CELL DISTRIBUTION WIDTH 20.5 % (9.6-15.2)
[2017-08-30 04:43] LABS: ALBUMIN 2.3 g/dL (3.4-5.0); ANION GAP 8 mmol/L (5-15); CALCIUM 7.8 mg/dL (8.5-10.1); CHLORIDE 113 mmol/L (98-107)
[2017-08-30 04:47] LABS: ALANINE AMINOTRANSFERASE 18 U/L (12-78); ALKALINE PHOSPHATASE 100 U/L (45-117); BILIRUBIN,TOTAL 1.5 mg/dL (0.2-1.0); CREATININE 0.73 mg/dL (0.55-1.02); TOTAL PROTEIN 4.6 g/dL (6.4-8.2)
[2017-08-30 04:55] LABS: MD YES
[2017-08-30 05:12] LABS: ANISOCYTOSIS 2+; BAND#(MANUAL) 1.27 x10^3/uL; BANDS%(MANUAL) 7 % (0-7); LYMPH#(MANUAL) 0.54 x10^3/uL (1-3.4); LYMPHS% (MANUAL) 3 % (22-44); METAMYELOCYTES# (MANUAL) 0.18 x10^3/uL (0-0); METAMYELOCYTES% (MANUAL) 1 % (0-1); MONOS#(MANUAL) 0.54 x10^3/uL (0.3-2.7); MONOS% (MANUAL) 3 % (2-9); POLYCHROMASIA 1+; SEG#(MANUAL) 15.57 x10^3/uL (1.8-6.8); SEGS% (MANUAL) 86 % (42-75)
[2017-08-30 05:13] LABS: <PLATELET ESTIMATE> INCREASED; <PLT MORPHOLOGY> NORMAL PLT MORPH
[2017-08-30] MEDS ORDERED: TPN PER PHARMACY MC PRN (09:00)
[2017-08-30] MEDS ORDERED: DEXTROSE 70% IV SCH ×4 (12:00→17:00)
[2017-08-30] MEDS ORDERED: [UNRECOGNIZED DRUG - OTHER] IV SCH ×2 (12:00→17:00)
[2017-08-30] MEDS ORDERED: FAT EMULSIONS IV SCH ×4 (12:00→17:00)
[2017-08-30] MEDS ORDERED: AMINO ACID 10% IV SCH ×4 (12:00→17:00)
[2017-08-30 12:36] VITALS: BP 127/63
[2017-08-30] MEDS ORDERED: DEXTROSE 50%, 50ML SYRINGE IVPush PRN (17:00)
[2017-08-30] MEDS ORDERED: DEXTROSE 10% 500 ML IV PRN (17:00)
[2017-08-30] MEDS ORDERED: [UNRECOGNIZED DRUG - OTHER] IV SCH (17:00)
[2017-08-30] MEDS ORDERED: FILTER, DISP 1.2 MICRON FOR TPN/PVN IV PRN (17:00)
[2017-08-30] MEDS ORDERED: [UNRECOGNIZED DRUG - OTHER] IV SCH (17:00)
[2017-08-30] MEDS: ENOXAPARIN 30 MG/0.3 ML SQ SCH (17:29)
[2017-08-30 19:41] VITALS: BP 120/53
[2017-08-30] MEDS: INSULIN REGULAR LOW DOSE Q6H X 48HRS SQ-INSULIN SCH (22:17)
[2017-08-31 02:00] VITALS: BP 114/62
[2017-08-31] MEDS: INSULIN REGULAR LOW DOSE Q6H X 48HRS SQ-INSULIN SCH ×4 (03:54→21:00)
[2017-08-31 04:49] LABS: ANION GAP 7 mmol/L (5-15); CHLORIDE 112 mmol/L (98-107)
[2017-08-31 04:54] LABS: MEAN CORPUSCULAR HEMOGLOBIN 31.8 pg (27.0-34.8); MEAN CORPUSCULAR HGB CONC 33.9 g/dL (32.4-35.8); MEAN CORPUSCULAR VOLUME 93.8 fL (80-100); MEAN PLATELET VOLUME 6.3 fL (7.4-10.4); PLATELET COUNT 416 x10^3/uL (130-400); RED BLOOD COUNT 2.63 x10^6/uL (3.82-5.3); RED CELL DISTRIBUTION WIDTH 22.1 % (9.6-15.2)
[2017-08-31 05:00] LABS: CALCIUM 7.9 mg/dL (8.5-10.1); CREATININE 0.68 mg/dL (0.55-1.02); PREALBUMIN 9.5 mg/dL (20.0-40.0); TRIGLYCERIDES 76 mg/dL (50-200)
[2017-08-31 05:43] LABS: MD YES
[2017-08-31 05:45] LABS: ANISOCYTOSIS 2+; BAND#(MANUAL) 0.42 x10^3/uL; BANDS%(MANUAL) 4 % (0-7); LYMPH#(MANUAL) 0.42 x10^3/uL (1-3.4); LYMPHS% (MANUAL) 4 % (22-44); METAMYELOCYTES% (MANUAL) 1 % (0-1); MONOS#(MANUAL) 0.31 x10^3/uL (0.3-2.7); MONOS% (MANUAL) 3 % (2-9); POLYCHROMASIA 1+; SEG#(MANUAL) 9.15 x10^3/uL (1.8-6.8); SEGS% (MANUAL) 88 % (42-75)
[2017-08-31 05:46] LABS: <PLATELET ESTIMATE> INCREASED; <PLT MORPHOLOGY> NORMAL PLT MORPH
[2017-08-31 05:47] LABS: ECHINOCYTES 1+; TOXIC GRAN 1+
[2017-08-31] MEDS: ENOXAPARIN 30 MG/0.3 ML SQ SCH ×2 (06:32→17:26)
[2017-08-31] MEDS: LACTATED RINGERS 1,000 ML IV SCH ×2 (06:33→20:17)
[2017-08-31 07:55] VITALS: BP 117/67
[2017-08-31 12:18] VITALS: BP 115/52
[2017-08-31] MEDS ORDERED: AMINO ACID 10% IV SCH (17:00)
[2017-08-31] MEDS ORDERED: [UNRECOGNIZED DRUG - OTHER] IV SCH (17:00)
[2017-08-31] MEDS ORDERED: FAT EMULSIONS IV SCH (17:00)
[2017-08-31] MEDS ORDERED: DEXTROSE 70% IV SCH (17:00)
[2017-08-31] MEDS ORDERED: FILTER, DISP 1.2 MICRON FOR TPN/PVN IV PRN (17:00)
[2017-08-31 19:46] VITALS: BP 125/63
[2017-09-01] VITALS (8 sets, daily range): BP systolic 124–143; BP diastolic 56–67
[2017-09-01] MEDS: INSULIN REGULAR LOW DOSE Q6H X 48HRS SQ-INSULIN SCH ×2 (03:30→09:00)
[2017-09-01 04:07] LABS: ANION GAP 5 mmol/L (5-15); CALCIUM 8.1 mg/dL (8.5-10.1); CHLORIDE 111 mmol/L (98-107)
[2017-09-01 04:08] LABS: CREATININE 0.47 mg/dL (0.55-1.02)
[2017-09-01 04:11] LABS: MEAN CORPUSCULAR HEMOGLOBIN 31.3 pg (27.0-34.8); MEAN CORPUSCULAR HGB CONC 33.1 g/dL (32.4-35.8); MEAN CORPUSCULAR VOLUME 94.7 fL (80-100); MEAN PLATELET VOLUME 6.5 fL (7.4-10.4); PLATELET COUNT 395 x10^3/uL (130-400); RED BLOOD COUNT 2.41 x10^6/uL (3.82-5.3); RED CELL DISTRIBUTION WIDTH 22.1 % (9.6-15.2)
[2017-09-01 04:48] LABS: MD YES
[2017-09-01 04:51] LABS: BAND#(MANUAL) 0.29 x10^3/uL; BANDS%(MANUAL) 4 % (0-7); LYMPH#(MANUAL) 0.73 x10^3/uL (1-3.4); LYMPHS% (MANUAL) 10 % (22-44); METAMYELOCYTES# (MANUAL) 0.07 x10^3/uL (0-0); METAMYELOCYTES% (MANUAL) 1 % (0-1); MONOS#(MANUAL) 0.07 x10^3/uL (0.3-2.7); MONOS% (MANUAL) 1 % (2-9); SEG#(MANUAL) 6.13 x10^3/uL (1.8-6.8); SEGS% (MANUAL) 84 % (42-75)
[2017-09-01 04:52] LABS: ANISOCYTOSIS 2+; POLYCHROMASIA 1+
[2017-09-01 04:53] LABS: ECHINOCYTES 1+; TOXIC GRAN 1+
[2017-09-01 04:54] LABS: <PLATELET ESTIMATE> ADEQUATE
[2017-09-01 04:55] LABS: <PLT MORPHOLOGY> NORMAL PLT MORPH
[2017-09-01] MEDS: ENOXAPARIN 30 MG/0.3 ML SQ SCH ×2 (06:25→17:32)
[2017-09-01] MEDS ORDERED: DIPHENHYDRAMINE 50 MG/ML, 1ML IVPush ONE (07:00)
[2017-09-01] MEDS ORDERED: ACETAMINOPHEN 325 MG TABLET PO ONE (07:00)
[2017-09-01] MEDS ORDERED: [UNRECOGNIZED DRUG - OTHER] IV SCH (17:00)
[2017-09-01] MEDS ORDERED: FAT EMULSIONS IV SCH (17:00)
[2017-09-01] MEDS ORDERED: DEXTROSE 70% IV SCH (17:00)
[2017-09-01] MEDS ORDERED: AMINO ACID 10% IV SCH (17:00)
[2017-09-01] MEDS: FILTER, DISP 1.2 MICRON FOR TPN/PVN IV PRN (17:32)
[2017-09-01] MEDS: LACTATED RINGERS 1,000 ML IV SCH (17:40)
[2017-09-02 02:00] VITALS: BP 132/70
[2017-09-02 05:24] LABS: BASOPHILS # (AUTO) 0.02 x10^3/uL (0-0.1); BASOPHILS % (AUTO) 0 % (0-1); EOSINOPHILS # (AUTO) 0.01 x10^3/uL (0-0.4); EOSINOPHILS % (AUTO) 0 % (1-7); LYMPHOCYTES # (AUTO) 0.57 x10^3/uL (1-3.4); LYMPHOCYTES % (AUTO) 7 % (22-44); MD NO; MEAN CORPUSCULAR HEMOGLOBIN 30.9 pg (27.0-34.8); MEAN CORPUSCULAR HGB CONC 33.3 g/dL (32.4-35.8); MEAN PLATELET VOLUME 6.4 fL (7.4-10.4); MONOCYTES # (AUTO) 0.44 x10^3/uL (0.2-0.8); MONOCYTES % (AUTO) 5 % (2-9); NEUTROPHILS % (AUTO) 88 % (42-75); PLATELET COUNT 329 x10^3/uL (130-400); RED BLOOD COUNT 3.48 x10^6/uL (3.82-5.3); RED CELL DISTRIBUTION WIDTH 17.6 % (9.6-15.2)
[2017-09-02] MEDS: ENOXAPARIN 30 MG/0.3 ML SQ SCH (05:37)
[2017-09-02 05:46] LABS: ANION GAP 3 mmol/L (5-15); CALCIUM 8.2 mg/dL (8.5-10.1); CHLORIDE 104 mmol/L (98-107)
[2017-09-02 05:47] LABS: CREATININE 0.41 mg/dL (0.55-1.02)
[2017-09-02 06:53] VITALS: BP 133/62
[2017-09-02] MEDS: INSULIN REGULAR LOW DOSE QDAY SQ-INSULIN SCH (08:28)
[2017-09-02 12:57] VITALS: BP 115/68
[2017-09-02] MEDS: LACTATED RINGERS 1,000 ML IV SCH (16:39)
[2017-09-02] MEDS ORDERED: FAT EMULSIONS IV SCH (17:00)
[2017-09-02] MEDS ORDERED: [UNRECOGNIZED DRUG - OTHER] IV SCH (17:00)
[2017-09-02] MEDS ORDERED: DEXTROSE 70% IV SCH (17:00)
[2017-09-02] MEDS ORDERED: AMINO ACID 10% IV SCH (17:00)
[2017-09-02 19:12] VITALS: BP 127/66
[2017-09-03 00:27] VITALS: BP 136/72
[2017-09-03 04:30] LABS: BASOPHILS # (AUTO) 0.02 x10^3/uL (0-0.1); BASOPHILS % (AUTO) 0 % (0-1); EOSINOPHILS # (AUTO) 0.02 x10^3/uL (0-0.4); EOSINOPHILS % (AUTO) 0 % (1-7); LYMPHOCYTES # (AUTO) 0.75 x10^3/uL (1-3.4); LYMPHOCYTES % (AUTO) 11 % (22-44); MD NO; MEAN CORPUSCULAR HEMOGLOBIN 31.4 pg (27.0-34.8); MEAN CORPUSCULAR HGB CONC 33.5 g/dL (32.4-35.8); MEAN CORPUSCULAR VOLUME 93.8 fL (80-100); MEAN PLATELET VOLUME 6.7 fL (7.4-10.4); MONOCYTES # (AUTO) 0.69 x10^3/uL (0.2-0.8); MONOCYTES % (AUTO) 10 % (2-9); NEUTROPHILS # (AUTO) 5.49 x10^3/uL (1.8-6.8); NEUTROPHILS % (AUTO) 79 % (42-75); PLATELET COUNT 287 x10^3/uL (130-400); RED BLOOD COUNT 3.42 x10^6/uL (3.82-5.3); RED CELL DISTRIBUTION WIDTH 18.2 % (9.6-15.2)
[2017-09-03 04:41] LABS: ANION GAP 4 mmol/L (5-15); CALCIUM 8.3 mg/dL (8.5-10.1); CHLORIDE 99 mmol/L (98-107)
[2017-09-03 04:42] LABS: CREATININE 0.43 mg/dL (0.55-1.02)
[2017-09-03 08:00] VITALS: BP 136/65
[2017-09-03] MEDS: INSULIN REGULAR LOW DOSE QDAY SQ-INSULIN SCH (09:00)
[2017-09-03] MEDS: ONDANSETRON 2MG/ML, 2ML IV PRN ×3 (09:12→22:25)
[2017-09-03 13:40] VITALS: BP 116/64
[2017-09-03] MEDS ORDERED: DEXTROSE 70% IV SCH (17:00)
[2017-09-03] MEDS ORDERED: FAT EMULSIONS IV SCH (17:00)
[2017-09-03] MEDS ORDERED: [UNRECOGNIZED DRUG - OTHER] IV SCH (17:00)
[2017-09-03] MEDS ORDERED: AMINO ACID 10% IV SCH (17:00)
[2017-09-03] MEDS: FILTER, DISP 1.2 MICRON FOR TPN/PVN IV PRN (17:16)
[2017-09-03 19:05] VITALS: BP 117/64
[2017-09-03] MEDS: LACTATED RINGERS 1,000 ML IV SCH (22:10)
[2017-09-04] MEDS: FILTER, DISP 1.2 MICRON FOR TPN/PVN IV PRN ×3 (01:04→06:02)
[2017-09-04 01:15] VITALS: BP 119/62
[2017-09-04 03:29] LABS: ANION GAP 3 mmol/L (5-15); CHLORIDE 99 mmol/L (98-107); CREATININE 0.51 mg/dL (0.55-1.02)
[2017-09-04 06:44] VITALS: BP 134/60
[2017-09-04] MEDS ORDERED: DEXTROSE 10% 1,000 ML IV SCH (08:00)
[2017-09-04] MEDS: ONDANSETRON 2MG/ML, 2ML IV PRN (08:41)
[2017-09-04] MEDS: INSULIN REGULAR LOW DOSE QDAY SQ-INSULIN SCH (08:43)
[2017-09-04 12:25] VITALS: BP 119/54
[2017-09-04] MEDS: HYDROcodone/APAP 5/325 TABLET PO PRN ×2 (16:08→20:22)
[2017-09-04] MEDS ORDERED: FAT EMULSIONS IV SCH (17:00)
[2017-09-04] MEDS ORDERED: DEXTROSE 70% IV SCH (17:00)
[2017-09-04] MEDS ORDERED: [UNRECOGNIZED DRUG - OTHER] IV SCH (17:00)
[2017-09-04] MEDS ORDERED: AMINO ACID 10% IV SCH (17:00)
[2017-09-04 19:42] VITALS: BP 109/61
[2017-09-05] MEDS: HYDROcodone/APAP 5/325 TABLET PO PRN ×2 (00:13→08:56)
[2017-09-05 02:07] VITALS: BP 119/65
[2017-09-05] MEDS: LACTATED RINGERS 1,000 ML IV SCH (05:22)
[2017-09-05 05:48] LABS: BASOPHILS # (AUTO) 0.06 x10^3/uL (0-0.1); BASOPHILS % (AUTO) 1 % (0-1); EOSINOPHILS # (AUTO) 0.03 x10^3/uL (0-0.4); EOSINOPHILS % (AUTO) 1 % (1-7); LYMPHOCYTES # (AUTO) 0.57 x10^3/uL (1-3.4); LYMPHOCYTES % (AUTO) 11 % (22-44); MD NO; MEAN CORPUSCULAR HEMOGLOBIN 31.3 pg (27.0-34.8); MEAN CORPUSCULAR HGB CONC 33.3 g/dL (32.4-35.8); MEAN PLATELET VOLUME 6.8 fL (7.4-10.4); MONOCYTES # (AUTO) 0.86 x10^3/uL (0.2-0.8); MONOCYTES % (AUTO) 16 % (2-9); NEUTROPHILS # (AUTO) 3.75 x10^3/uL (1.8-6.8); NEUTROPHILS % (AUTO) 71 % (42-75); PLATELET COUNT 291 x10^3/uL (130-400); RED BLOOD COUNT 3.19 x10^6/uL (3.82-5.3); RED CELL DISTRIBUTION WIDTH 17.1 % (9.6-15.2)
[2017-09-05 06:01] LABS: ALBUMIN 1.8 g/dL (3.4-5.0); ANION GAP 3 mmol/L (5-15); CALCIUM 8.2 mg/dL (8.5-10.1); CHLORIDE 99 mmol/L (98-107)
[2017-09-05 06:05] LABS: ALANINE AMINOTRANSFERASE 60 U/L (12-78); ALKALINE PHOSPHATASE 231 U/L (45-117); BILIRUBIN,TOTAL 0.6 mg/dL (0.2-1.0); CREATININE 0.42 mg/dL (0.55-1.02); PREALBUMIN 13.5 mg/dL (20.0-40.0); TOTAL PROTEIN 4.9 g/dL (6.4-8.2); TRIGLYCERIDES 73 mg/dL (50-200)
[2017-09-05 06:39] VITALS: BP 117/68
[2017-09-05] MEDS: ONDANSETRON 2MG/ML, 2ML IV PRN (08:30)
[2017-09-05] MEDS: INSULIN REGULAR LOW DOSE QDAY SQ-INSULIN SCH (08:56)
[2017-09-05 13:03] VITALS: BP 110/63
[2017-09-05] MEDS ORDERED: [UNRECOGNIZED DRUG - OTHER] IV SCH (17:00)
[2017-09-05] MEDS ORDERED: FAT EMULSIONS IV SCH (17:00)
[2017-09-05] MEDS ORDERED: DEXTROSE 70% IV SCH (17:00)
[2017-09-05] MEDS ORDERED: AMINO ACID 10% IV SCH (17:00)
[2017-09-05 19:53] VITALS: BP 108/62
[2017-09-06 02:59] VITALS: BP 118/62
[2017-09-06 03:31] LABS: ANION GAP 4 mmol/L (5-15); CALCIUM 7.8 mg/dL (8.5-10.1); CHLORIDE 97 mmol/L (98-107); CREATININE 0.43 mg/dL (0.55-1.02)
[2017-09-06 06:57] VITALS: BP 132/71
[2017-09-06] MEDS: INSULIN REGULAR LOW DOSE QDAY SQ-INSULIN SCH (07:47)
[2017-09-06] MEDS: LACTATED RINGERS 1,000 ML IV SCH (09:57)
[2017-09-06] MEDS ORDERED: KETOROLAC 30 MG/1 ML IVPush SCH (10:30)
[2017-09-06 12:27] VITALS: BP 99/62
[2017-09-06] MEDS: KETOROLAC 30 MG/1 ML IVPush PRN (14:29)
[2017-09-06] MEDS ORDERED: [UNRECOGNIZED DRUG - OTHER] IV SCH (17:00)
[2017-09-06] MEDS ORDERED: AMINO ACID 10% IV SCH (17:00)
[2017-09-06] MEDS ORDERED: FAT EMULSIONS IV SCH (17:00)
[2017-09-06] MEDS ORDERED: DEXTROSE 70% IV SCH (17:00)
[2017-09-06] MEDS: FILTER, DISP 1.2 MICRON FOR TPN/PVN IV PRN (18:18)
[2017-09-06 19:01] VITALS: BP 95/56
[2017-09-07] MEDS: ONDANSETRON 2MG/ML, 2ML IV PRN (03:57)
[2017-09-07 04:00] VITALS: BP 119/70
[2017-09-07 04:26] LABS: ANION GAP 4 mmol/L (5-15); CALCIUM 8.1 mg/dL (8.5-10.1); CHLORIDE 95 mmol/L (98-107); CREATININE 0.66 mg/dL (0.55-1.02)
[2017-09-07 07:20] VITALS: BP 133/73
[2017-09-07] MEDS: ONDANSETRON 2MG/ML, 2ML IVPush PRN ×2 (08:01→12:59)
[2017-09-07] MEDS: INSULIN REGULAR LOW DOSE QDAY SQ-INSULIN SCH (08:12)
[2017-09-07] MEDS ORDERED: FAMOTIDINE 20 MG TABLET PO SCH (09:00)
[2017-09-07] MEDS: HYDROmorphone 2MG TABLET PO PRN ×7 (10:23→22:38)
[2017-09-07] MEDS: KETOROLAC 30 MG/1 ML IVPush PRN ×3 (10:23→22:30)
[2017-09-07 14:36] VITALS: BP 96/54
[2017-09-07 16:24] VITALS: BP 104/62
[2017-09-07] MEDS ORDERED: FAT EMULSIONS IV SCH (17:00)
[2017-09-07] MEDS ORDERED: FILTER, DISP 1.2 MICRON FOR TPN/PVN IV PRN (17:00)
[2017-09-07] MEDS ORDERED: [UNRECOGNIZED DRUG - OTHER] IV SCH (17:00)
[2017-09-07] MEDS ORDERED: AMINO ACID 10% IV SCH (17:00)
[2017-09-07] MEDS ORDERED: DEXTROSE 70% IV SCH (17:00)
[2017-09-07 19:32] VITALS: BP 103/65
[2017-09-07 22:36] VITALS: BP 106/64
[2017-09-08] VITALS (7 sets, daily range): BP systolic 109–120; BP diastolic 64–70
[2017-09-08] MEDS: HYDROmorphone 2MG TABLET PO PRN ×7 (01:39→23:27)
[2017-09-08 04:45] LABS: ANION GAP 5 mmol/L (5-15); CHLORIDE 98 mmol/L (98-107); CREATININE 0.68 mg/dL (0.55-1.02)
[2017-09-08] MEDS: KETOROLAC 30 MG/1 ML IVPush PRN ×4 (05:36→23:27)
[2017-09-08] MEDS: INSULIN REGULAR LOW DOSE QDAY SQ-INSULIN SCH (09:00)
[2017-09-08] MEDS ORDERED: FAT EMULSIONS IV SCH (17:00)
[2017-09-08] MEDS ORDERED: DEXTROSE 70% IV SCH (17:00)
[2017-09-08] MEDS ORDERED: PHARMACY INSTRUCTION MC ONE (17:00)
[2017-09-08] MEDS ORDERED: AMINO ACID 10% IV SCH (17:00)
[2017-09-08] MEDS ORDERED: FILTER, DISP 1.2 MICRON FOR TPN/PVN IV PRN (17:00)
[2017-09-08] MEDS ORDERED: [UNRECOGNIZED DRUG - OTHER] IV SCH (17:00)
[2017-09-08] MEDS: LACTATED RINGERS 1,000 ML IV SCH (17:23)
[2017-09-09 01:57] VITALS: BP 125/65
[2017-09-09] MEDS: HYDROmorphone 2MG TABLET PO PRN ×7 (03:30→23:30)
[2017-09-09 04:00] LABS: ANION GAP 4 mmol/L (5-15); CALCIUM 8.2 mg/dL (8.5-10.1); CHLORIDE 103 mmol/L (98-107); CREATININE 0.52 mg/dL (0.55-1.02)
[2017-09-09 07:29] VITALS: BP 129/65
[2017-09-09] MEDS: KETOROLAC 30 MG/1 ML IVPush PRN ×3 (07:39→19:33)
[2017-09-09] MEDS: ONDANSETRON 2MG/ML, 2ML IVPush PRN (07:46)
[2017-09-09] MEDS: INSULIN REGULAR LOW DOSE QDAY SQ-INSULIN SCH (09:00)
[2017-09-09] MEDS ORDERED: TPN PER PHARMACY MC PRN (12:00)
[2017-09-09] MEDS: SIMETHICONE 125 MG CHEW TAB PO PRN ×2 (12:31→21:50)
[2017-09-09 14:00] VITALS: BP 110/55
[2017-09-09] MEDS: LACTATED RINGERS 1,000 ML IV SCH (15:43)
[2017-09-09] MEDS ORDERED: FILTER, DISP 1.2 MICRON FOR TPN/PVN IV PRN (17:00)
[2017-09-09] MEDS ORDERED: FAT EMULSIONS IV SCH (17:00)
[2017-09-09] MEDS ORDERED: DEXTROSE 70% IV SCH (17:00)
[2017-09-09] MEDS ORDERED: [UNRECOGNIZED DRUG - OTHER] IV SCH (17:00)
[2017-09-09] MEDS ORDERED: AMINO ACID 10% IV SCH (17:00)
[2017-09-09 18:45] VITALS: BP 119/70
[2017-09-10 00:34] VITALS: BP 123/65
[2017-09-10] MEDS: KETOROLAC 30 MG/1 ML IVPush PRN ×2 (02:02→09:18)
[2017-09-10] MEDS: HYDROmorphone 2MG TABLET PO PRN ×6 (02:40→21:00)
[2017-09-10] MEDS: LACTATED RINGERS 1,000 ML IV SCH (02:41)
[2017-09-10 08:16] VITALS: BP 136/68
[2017-09-10] MEDS: INSULIN REGULAR LOW DOSE QDAY SQ-INSULIN SCH (09:00)
[2017-09-10] MEDS: SIMETHICONE 125 MG CHEW TAB PO PRN ×2 (09:22→18:24)
[2017-09-10 13:43] VITALS: BP 114/60
[2017-09-10 15:57] LABS: BASOPHILS # (AUTO) 0.03 x10^3/uL (0-0.1); BASOPHILS % (AUTO) 1 % (0-1); EOSINOPHILS # (AUTO) 0.06 x10^3/uL (0-0.4); EOSINOPHILS % (AUTO) 1 % (1-7); LYMPHOCYTES # (AUTO) 0.64 x10^3/uL (1-3.4); LYMPHOCYTES % (AUTO) 11 % (22-44); MD NO; MEAN CORPUSCULAR HEMOGLOBIN 30.5 pg (27.0-34.8); MEAN CORPUSCULAR HGB CONC 32.5 g/dL (32.4-35.8); MEAN CORPUSCULAR VOLUME 93.7 fL (80-100); MONOCYTES # (AUTO) 1.09 x10^3/uL (0.2-0.8); MONOCYTES % (AUTO) 18 % (2-9); NEUTROPHILS # (AUTO) 4.18 x10^3/uL (1.8-6.8); NEUTROPHILS % (AUTO) 70 % (42-75); PLATELET COUNT 532 x10^3/uL (130-400); RED BLOOD COUNT 2.94 x10^6/uL (3.82-5.3); RED CELL DISTRIBUTION WIDTH 16.9 % (9.6-15.2)
[2017-09-10] MEDS: KETOROLAC 10MG TABLET PO PRN ×2 (17:07→22:58)
[2017-09-10 19:19] VITALS: BP 128/66
[2017-09-11] MEDS: HYDROmorphone 2MG TABLET PO PRN ×8 (00:09→20:36)
[2017-09-11 01:49] VITALS: BP 145/77
[2017-09-11] MEDS: KETOROLAC 10MG TABLET PO PRN (05:01)
[2017-09-11] MEDS: ONDANSETRON 4 MG TABLET PO PRN (05:39)
[2017-09-11] MEDS ORDERED: KETOROLAC 10MG TABLET PO SCH (06:30)
[2017-09-11 07:14] VITALS: BP 112/65
[2017-09-11] MEDS: SIMETHICONE 125 MG CHEW TAB PO PRN ×2 (12:52→17:24)
[2017-09-11 14:28] VITALS: BP 116/68
[2017-09-11] MEDS: FERROUS SULFATE 220 MG/5 ML ORAL SOL PO SCH (17:24)
[2017-09-11] MEDS ORDERED: ACETAMINOPHEN 325 MG TABLET ONE (18:23)
[2017-09-11] MEDS ORDERED: ACETAMINOPHEN 325 MG TABLET PO PRN (18:30)
[2017-09-11 19:31] VITALS: BP 109/65
[2017-09-11 22:38] VITALS: BP 116/65
[2017-09-12] MEDS: HYDROmorphone 2MG TABLET PO PRN ×6 (00:10→16:21)
[2017-09-12 03:17] VITALS: BP 128/63
[2017-09-12] MEDS: ONDANSETRON 4 MG TABLET PO PRN ×2 (06:03→16:21)
[2017-09-12 06:40] VITALS: BP 113/78
[2017-09-12] MEDS: FERROUS SULFATE 220 MG/5 ML ORAL SOL PO SCH (08:28)
[2017-09-12] MEDS: SIMETHICONE 125 MG CHEW TAB PO PRN ×3 (09:28→16:21)
[2017-09-12] MEDS ORDERED: SIME80TA16 PO (12:17)
[2017-09-12 14:08] VITALS: BP 110/64
== END 2017-09-12 16:30 | DRG 329 ==
LOC: 3NW 12:16 → CCU 08-29 23:30 → 3NW 08-30 10:44
PROVIDERS: ADMIT Specialist; ATTEND Specialist
PROC: 30233N1 Transfusion of Nonautologous Red Blood Cells into Peripheral Vein, Percutaneous Approach (ICD-10-PCS; 2017-08-29)
PROC: 5A09357 Assistance with Respiratory Ventilation, Less than 24 Consecutive Hours, Continuous Positive Airway Pressure (ICD-10-PCS; 2017-08-29)
PROC: 0DTN0ZZ Resection of Sigmoid Colon, Open Approach (ICD-10-PCS; principal; 2017-09-07)
PROC: 0DNE0ZZ Release Large Intestine, Open Approach (ICD-10-PCS; 2017-09-07)
PROC: 0D1N0Z4 Bypass Sigmoid Colon to Cutaneous, Open Approach (ICD-10-PCS; 2017-09-07)
DX: N82.3 Fistula of vagina to large intestine (principal); E43 Unspecified severe protein-calorie malnutrition; J96.00 Acute respiratory failure, unspecified whether with hypoxia or hypercapnia; C56.9 Malignant neoplasm of unspecified ovary; E87.2 Acidosis; Z91.19 Patient's noncompliance with other medical treatment and regimen; D64.9 Anemia, unspecified; Z88.6 Allergy status to analgesic agent; Z88.8 Allergy status to other drugs, medicaments and biological substances; Z68.21 Body mass index [BMI] 21.0-21.9, adult; E83.42 Hypomagnesemia; E86.0 Dehydration; E87.6 Hypokalemia; E87.8 Other disorders of electrolyte and fluid balance, not elsewhere classified; I48.91 Unspecified atrial fibrillation; K66.0 Peritoneal adhesions (postprocedural) (postinfection); R32 Unspecified urinary incontinence; Z92.21 Personal history of antineoplastic chemotherapy; N89.8 Other specified noninflammatory disorders of vagina
CPT/HCPCS: 36415; 36600; 71045; 74018; 80048; 80053; 82040; 82803; 82962; 83735; 84100; 84134; 84478; 85025; 86850; 86900; 86923; 87081; 87324; 87493; 88305; 88342; 93005; 94660; J0171; J0690; J1100; J1644; J1650; J1815; J1885; J2270; J2405; J2704; J2710; J3010; J3475; J3480; J3490; P9045; Q0162; G0461; J1200; J2370; J3420; J7050; J7120; P9016; Q0163; Q9968; S0028; S0074

== ENCOUNTER → 2018-05-23 | Outpatient (CLI) | payer OTHER ==
[~2018-05-23] MED LIST changes: +DEXA4TAB66 PO; +HYDR-3653 PO; -HYDR-882 PO; +MAGN400T36 PO; -MULT-230 PO; +MULT-806 PO; +POTA20TA37 PO; +SIME80TA16 PO
== END | disposition home or self-care (01) ==
LOC: RAD 14:07
PROVIDERS: ATTEND Internal Medicine
DX: R22.43 Localized swelling, mass and lump, lower limb, bilateral (principal)
CPT/HCPCS: 93970

== ENCOUNTER 2018-08-25 12:00 | Emergency (ER) | payer MEDICARE, OTHER ==
[~2018-08-25] VITALS: Ht 170.2 cm; Wt 63.0 kg
[~2018-08-25 12:00] MED LIST changes: +HYDR-3622 PO; +SULF1TAB24 PO
--- NOTE | 2018-08-25 12:48 | NUR ---
Note luly in EDM - 08/25/18 at 1310 by NERIS pt resting in [facility] and pt medicated per mar. silva at bedside. awaiting CT scan
--- NOTE | 2018-08-25 13:12 | NUR ---
us at bedside
--- NOTE | 2018-08-25 14:10 | NUR ---
md at bedside to updated pt on poc, pt to be discharged
[2018-08-25 14:22] VITALS: BP 121/41
== END 2018-08-25 14:24 | disposition home or self-care (01) ==
LOC: ED 14:18
DX: I80.8 Phlebitis and thrombophlebitis of other sites (principal); Z85.43 Personal history of malignant neoplasm of ovary; Z90.49 Acquired absence of other specified parts of digestive tract; Z90.710 Acquired absence of both cervix and uterus
CPT/HCPCS: 99284

== ENCOUNTER 2018-09-19 09:04 | Outpatient (CLI) | payer MEDICARE, OTHER ==
[2018-09-19] MEDS ORDERED: OMNIPAQUE 350 MG/ML, 100ML BOTTLE ONE (10:15)
== END 2018-09-19 23:59 | disposition home or self-care (01) ==
LOC: CFH 09:04
PROVIDERS: ATTEND Nurse Practitioner Acute Care
DX: C56.2 Malignant neoplasm of left ovary (principal); C56.1 Malignant neoplasm of right ovary; E04.2 Nontoxic multinodular goiter; N13.30 Unspecified hydronephrosis; I70.0 Atherosclerosis of aorta; M51.34 Other intervertebral disc degeneration, thoracic region; N28.89 Other specified disorders of kidney and ureter; J98.11 Atelectasis
CPT/HCPCS: 71260; 74177; Q9967

== ENCOUNTER → 2019-06-28 | Outpatient (CLI) | payer MEDICARE, OTHER ==
[~2019-06-28] MED LIST changes: +LOPE-114 PO; -LOPE2CAP94 PO; -MAGN400T7 PO; +MAGN400T9 PO; +MULT-709 PO; +VITA1TAB19 PO
== END | disposition home or self-care (01) ==
LOC: RAD 14:56
PROVIDERS: ATTEND Specialist
DX: C56.2 Malignant neoplasm of left ovary (principal); R19.7 Diarrhea, unspecified; R30.0 Dysuria; J98.4 Other disorders of lung
CPT/HCPCS: 71046

== ENCOUNTER 2019-08-06 13:10 | Outpatient (CLI) | payer MEDICARE, OTHER | END 2019-08-06 23:59 | disposition home or self-care (01) | LOC: CFH 13:10 | PROVIDERS: ATTEND Registered Nurse Maternal Newborn | DX: C56.2 Malignant neoplasm of left ovary (principal); C56.1 Malignant neoplasm of right ovary; C78.80 Secondary malignant neoplasm of unspecified digestive organ; R97.1 Elevated cancer antigen 125 [CA 125]; I82.401 Acute embolism and thrombosis of unspecified deep veins of right lower extremity; E87.6 Hypokalemia; R19.7 Diarrhea, unspecified; R30.0 Dysuria; R22.41 Localized swelling, mass and lump, right lower limb ==

== ENCOUNTER 2019-09-25 23:51 | Emergency (ER) | payer MEDICARE, OTHER ==
[~2019-09-25] VITALS: Ht 170.2 cm; Wt 68.2 kg
[2019-09-26] MEDS ORDERED: HYDROcodone/APAP 5/325 TABLET ONE (00:21)
[2019-09-26] MEDS ORDERED: HYDROcodone/APAP 5/325 TABLET PO ONE (00:30)
--- NOTE | 2019-09-26 00:40 | NUR ---
Sargent cath irrigated with 30cc steril water. Pt tolerated well. Cath now draining with gravity. Urine clear. Pt states some relief of abd pain. ERP aware and pt to be d/c. Pt and requesting to stay for obs to make sure cath does not stop up again. ERP agrees. Call light in reach and pt aware to notify RN when she feels comfortable going home.
--- NOTE | 2019-09-26 00:56 | NUR ---
ERP in to recheck.
[2019-09-26 01:19] VITALS: BP 117/53
--- NOTE | 2019-09-26 01:19 | NUR ---
received report from LACHELLE Tirado. patient discharged with instruction given to patient and . verbalized understanding.
--- NOTE | 2019-09-26 01:28 | NUR ---
patient wheeled to lobby assisted by female RN.
== END 2019-09-26 01:30 ==
LOC: ED 09-26 01:24
DX: Z46.6 Encounter for fitting and adjustment of urinary device (principal); Z85.43 Personal history of malignant neoplasm of ovary
CPT/HCPCS: 99283

== ENCOUNTER 2019-10-23 09:09 | Day surgery (SDC) | payer MEDICARE, OTHER ==
[~2019-10-23] VITALS: Ht 170.2 cm; Wt 61.8 kg
[2019-10-23] MEDS ORDERED: LAMOTIL PO (10:19)
[2019-10-23] MEDS ORDERED: CHLORHEXIDINE 15 ML UDC MM ONE (10:30)
[2019-10-23 10:32] VITALS: BP 91/65
[2019-10-23] MEDS ORDERED: LACTATED RINGERS 1,000 ML IV SCH (11:00)
[2019-10-23 11:20] LABS: INTERNATIONAL NORMALIZED RATIO 1.02 (0.93-1.1); PROTHROMBIN TIME 10.5 Seconds (9.6-11.5)
[2019-10-23] MEDS ORDERED: MIDAZOLAM 1 MG/ML, 2ML ONE (11:52)
[2019-10-23] MEDS ORDERED: FENTANYL PF 250 MCG/5ML ONE (11:53)
[2019-10-23] MEDS ORDERED: ONDANSETRON 2MG/ML, 2ML ONE (13:13)
[2019-10-23] MEDS ORDERED: PROPOFOL 10 MG/ML, 20ML ONE (13:13)
[2019-10-23] MEDS ORDERED: FENTANYL PF 100 MCG/2ML IV PRN (14:00)
[2019-10-23] MEDS ORDERED: METOCLOPRAMIDE 5 MG/ML, 2ML IV PRN (14:00)
[2019-10-23] MEDS ORDERED: MEPERIDINE/PF 25MG/0.5ML IVPush PRN (14:00)
[2019-10-23] MEDS ORDERED: PROMETHAZINE 25 MG/ML, 1ML IV PRN (14:00)
[2019-10-23] MEDS ORDERED: LABETALOL 5MG/ML, 20ML IV PRN (14:00)
[2019-10-23] MEDS ORDERED: HYDROmorphone 1 MG/ML, 1ML INJ IV PRN (14:00)
[2019-10-23] MEDS ORDERED: ONDANSETRON 2MG/ML, 2ML IVPush PRN (14:00)
[2019-10-23] MEDS ORDERED: DIAZEPAM 5 MG/ML, 2ML IV PRN ×2 (14:00)
[2019-10-23] MEDS ORDERED: ALBUTEROL SULFATE 2.5 MG/3 ML NPPB PRN (14:00)
[2019-10-23] MEDS ORDERED: OXYcodone 5 MG/5 ML ORAL.SOL UDC PO PRN (14:00)
[2019-10-23] MEDS ORDERED: hydrALAzine 20 MG/ML, 1ML IV PRN (14:00)
[2019-10-23] MEDS ORDERED: KETOROLAC 30 MG/1 ML IV PRN (14:00)
== END 2019-10-23 16:30 | disposition home or self-care (01) ==
LOC: OUT 09:09
PROVIDERS: ATTEND Specialist
DX: N39.490 Overflow incontinence (principal); Z20.828 Contact with and (suspected) exposure to other viral communicable diseases; C56.2 Malignant neoplasm of left ovary; C56.1 Malignant neoplasm of right ovary; C78.7 Secondary malignant neoplasm of liver and intrahepatic bile duct; G47.30 Sleep apnea, unspecified; Z79.01 Long term (current) use of anticoagulants; Z79.82 Long term (current) use of aspirin; Z79.899 Other long term (current) drug therapy; Z90.49 Acquired absence of other specified parts of digestive tract; Z82.3 Family history of stroke
CPT/HCPCS: 36415; 51102; 85610; 85730; 87635; 93005; J2250; J2405; J2704; J3010; J7120

== ENCOUNTER 2019-11-21 14:17 | Day surgery (SDC) | payer MEDICARE, OTHER ==
[~2019-11-21 14:17] MED LIST changes: +LAMOTIL PO; -PANT20TA3 PO; +PANT20TA4 PO
[2019-11-21] MEDS ORDERED: LIDOCAINE 1%, 20ML ONE (15:34)
[2019-11-21] MEDS ORDERED: LIDOCAINE 1%, 10ML ONE (15:34)
[2019-11-21] MEDS ORDERED: VISIPAQUE 270 MG/ML, 50ML BOTTLE ONE (16:45)
== END 2019-11-21 23:59 | disposition home or self-care (01) ==
LOC: RAD 14:17
PROVIDERS: ATTEND Internal Medicine
DX: C56.1 Malignant neoplasm of right ovary (principal)
CPT/HCPCS: 51600; 74430; Q9966; 51705; 76000

== ENCOUNTER 2019-11-28 08:15 | Inpatient (IN) | payer OTHER ==
[~2019-11-28] VITALS: Ht 170.2 cm; Wt 69.3 kg
[2019-11-28] MEDS ORDERED: FURO20TA3 PO (13:26)
[2019-11-28] MEDS ORDERED: SPIR25TA5 PO (13:27)
[2019-11-28] MEDS ORDERED: GAB (13:29)
[2019-11-28] MEDS ORDERED: gabapentin PO (13:30)
[2019-11-28] MEDS ORDERED: LORA2ORA7 PO (13:32)
[2019-11-28] MEDS ORDERED: morphine PO (13:33)
[2019-11-28] MEDS: MORPHINE SULFATE 4 MG/ML, 1ML IVPush PRN (13:44)
[2019-11-28 14:00] VITALS: BP 114/68
[2019-11-28] MEDS: ONDANSETRON 2MG/ML, 2ML IVPush PRN ×2 (14:50→18:48)
[2019-11-28] MEDS ORDERED: LORazepam 1MG TABLET PO PRN (17:30)
[2019-11-28] MEDS: HYDROcodone/APAP 10/325 MG TABLET PO SCH ×2 (17:38→21:11)
[2019-11-28 18:56] VITALS: BP 94/72
[2019-11-28] MEDS: GABAPENTIN 100 MG CAPSULE PO SCH (21:11)
[2019-11-28] MEDS: CIPROFLOXACIN 250 MG TABLET PO SCH (21:12)
[2019-11-29] MEDS: ONDANSETRON 2MG/ML, 2ML IVPush PRN ×2 (00:28→23:43)
[2019-11-29 01:01] VITALS: BP 104/61
[2019-11-29] MEDS: HYDROcodone/APAP 10/325 MG TABLET PO SCH ×4 (03:00→20:55)
[2019-11-29] MEDS: ASPIRIN 325 MG TABLET PO SCH (05:32)
[2019-11-29 08:15] VITALS: BP 99/65
[2019-11-29] MEDS: FERROUS SULFATE 325 MG TABLET PO SCH (08:49)
[2019-11-29] MEDS: CIPROFLOXACIN 250 MG TABLET PO SCH ×2 (08:50→20:55)
[2019-11-29] MEDS: GABAPENTIN 100 MG CAPSULE PO SCH ×3 (08:50→20:56)
[2019-11-29] MEDS: MAGNESIUM OXIDE 400 MG TABLET PO SCH (08:50)
[2019-11-29] MEDS: MORPHINE SULFATE 4 MG/ML, 1ML IVPush PRN (11:02)
[2019-11-29 12:01] VITALS: BP 107/72
[2019-11-29] MEDS ORDERED: FENTANYL 12 MCG PATCH TD SCH (17:00)
[2019-11-29] MEDS ORDERED: FENTANYL REMOVE PATCH NOTE XX SCH (17:30)
[2019-11-29 18:42] VITALS: BP 109/60
[2019-11-30 00:52] VITALS: BP 112/74
[2019-11-30] MEDS: HYDROcodone/APAP 10/325 MG TABLET PO SCH ×4 (03:48→12:54)
[2019-11-30] MEDS: ASPIRIN 325 MG TABLET PO SCH (05:49)
[2019-11-30 07:12] VITALS: BP 102/68
[2019-11-30] MEDS ORDERED: CIPR250T27 PO (08:25)
[2019-11-30] MEDS ORDERED: FENT1PAT74 TD ×2 (08:25→08:27)
[2019-11-30] MEDS ORDERED: MAGN400T50 PO (08:25)
[2019-11-30] MEDS: ONDANSETRON 2MG/ML, 2ML IVPush PRN (08:49)
[2019-11-30] MEDS: CIPROFLOXACIN 250 MG TABLET PO SCH ×2 (09:00→10:00)
[2019-11-30] MEDS: MAGNESIUM OXIDE 400 MG TABLET PO SCH ×2 (09:00→10:01)
[2019-11-30] MEDS: GABAPENTIN 100 MG CAPSULE PO SCH ×2 (09:00→10:01)
[2019-11-30] MEDS: FERROUS SULFATE 325 MG TABLET PO SCH ×2 (10:00→10:01)
[2019-11-30 12:11] VITALS: BP 107/71
== END 2019-11-30 13:13 | disposition hospice, home (50) | DRG 699 ==
LOC: ORIP 11:02 → EDIP 11:30 → 4NW 12:53
PROVIDERS: ADMIT Internal Medicine; ATTEND Internal Medicine
DX: T83.090A Other mechanical complication of cystostomy catheter, initial encounter (principal); C56.9 Malignant neoplasm of unspecified ovary; N39.0 Urinary tract infection, site not specified; N36.0 Urethral fistula; G89.3 Neoplasm related pain (acute) (chronic); I48.91 Unspecified atrial fibrillation; L89.159 Pressure ulcer of sacral region, unspecified stage; N13.9 Obstructive and reflux uropathy, unspecified; R33.8 Other retention of urine; R32 Unspecified urinary incontinence; Y73.8 Miscellaneous gastroenterology and urology devices associated with adverse incidents, not elsewhere classified; Z51.5 Encounter for palliative care; Z66 Do not resuscitate; Z74.01 Bed confinement status; Z92.21 Personal history of antineoplastic chemotherapy; Y92.89 Other specified places as the place of occurrence of the external cause; Z93.3 Colostomy status; Z88.5 Allergy status to narcotic agent
CPT/HCPCS: 49465; 76000; G0378; J2405; J2270